=== PATIENT | male | born 1955 | race Caucasian/White ===

== ENCOUNTER → 2016-12-05 | Outpatient (CLI) | payer BC ==
--- NOTE | 2016-12-05 14:46 | REP ---
Renal ultrasound: The kidneys are normal size. In the right kidney measures 10.3 x 5.0 x 4.9 cm. The left kidney measures 10.6 x 5.9 x 4.8 cm. There is no hydronephrosis, calculus, cyst or mass in the right and the left kidneys. There is a focal hypoechoic zone at the margin of the lower pole of the right kidney measuring 3.0 x 0.7 x 1.4 cm, nonspecific, pararenal fluid versus fat stranding. Impression: Non specific hypoechoic focal zone at the margin of the right renal lower pole, pararenal fluid versus fat stranding. Otherwise, negative renal ultrasound. Bladder ultrasound: The bladder is incompletely distended and cannot be further evaluated. Signed by Conor Aguila MD 12/05/2016 02:38 P
== END ==
LOC: M RAD 12:44
PROVIDERS: ATTEND Internal Medicine Nephrology
DX: N18.3 Chronic kidney disease, stage 3 (moderate) (principal); I10 Essential (primary) hypertension

== ENCOUNTER 2016-12-23 21:51 | Emergency (ER) | payer BC ==
[2016-12-23 22:35] LABS: INR 0.98; MEAN CORPUSCULAR HEMOGLOBIN 30.6 pg (27.0-33.0); MEAN CORPUSCULAR HGB CONC 34.1 g/dl (32.0-36.5); MEAN CORPUSCULAR VOLUME 89.7 fl (80.0-96.0); RED CELL DISTRIBUTION WIDTH 12.6 % (11.5-14.5); WHITE BLOOD COUNT 6.8 K/mm3 (4.0-10.0)
[2016-12-23] MEDS ORDERED: ASPIRIN 81 MG CHEW TABLET As Ordered ONE (22:35)
[2016-12-23 22:44] LABS: ANION GAP 7 MEQ/L (8-16); BLOOD UREA NITROGEN 35 MG/DL (7-18); CARBON DIOXIDE LEVEL 29 MEQ/L (21-32); CHLORIDE LEVEL 100 MEQ/L (98-107); CREATININE FOR GFR 1.76 MG/DL (0.70-1.30); GLOMERULAR FILTRATION RATE 42.3 (>49); GLUCOSE, FASTING 174 MG/DL (80-110); POTASSIUM SERUM 4.2 MEQ/L (3.5-5.1); SODIUM LEVEL 136 MEQ/L (136-145)
[2016-12-23] MEDS ORDERED: HYDROmorphone HCL 1 MG/ML SYRINGE (J1170) As Ordered ONE (23:08)
[2016-12-23] MEDS ORDERED: METOCLOPRAMIDE INJ 10MG/2ML VIAL (J2765) As Ordered ONE (23:15)
[2016-12-24] MEDS ORDERED: GASTROGRAFIN SOLUTION 30ML (Q9963) As Ordered ONE (00:07)
[2016-12-24] MEDS ORDERED: GI COCKTAIL 50ML BTL(HYOSCYAMINE/MAALOX/LIDOCAINE VISCOUS)(1:3:1) As Ordered ONE (02:00)
--- NOTE | 2016-12-24 02:00 | REPUSA ---
CT of the abdomen and pelvis without contrast Clinical statement: Pain. Technique: Multiple axial CT images were obtained from the base of the lungs to the floor of the pelv is utilizing 5 mm axial slices after administration of oral contrast. Coronal and sagittal reconstruc tions were also obtained. No comparison is available. Findings: Chest: The visualized lung bases are clear. A moderate sized hiatal hernia is noted. Abdomen: The kidneys are normal in size bilaterally. There is no evidence of hydronephrosis or nephro lithiasis. The liver, spleen, pancreas, gallbladder and adrenal glands are unremarkable. The aorta de monstrates normal caliber and contour. There is no abdominal lymphadenopathy or ascites. Pelvis: The bowel is unremarkable, with no obstructive or inflammatory changes. The appendix is kathie l. The urinary bladder is within normal limits. There is no pelvic lymphadenopathy or ascites. The ot her pelvic structures appear unremarkable. Bones: There are no suspicious osseous abnormalities seen. Impression: No acute findings to explain the patient's pain. No obstructive or inflammatory bowel jaya nges. No evidence of hydronephrosis or nephrolithiasis.
--- NOTE | 2016-12-24 02:00 | REPUSA ---
CT of the chest without contrast Clinical statement: pain. Technique: Multiple axial CT images were obtained with 5 mm cuts through the chest without administra tion of contrast. No comparison is available. Findings: There is no thoracic lymphadenopathy. The visualized portions of the thyroid gland is unrem arkable. There are no pericardial or pleural effusions. There are patchy infiltrates in the lower loree gs bilaterally. Limited imaging of the upper abdomen does not demonstrate any acute abnormalities. Th ere is a moderate sized hiatal hernia. There are no suspicious osseous lesions. Impression: 1. Bilateral patchy lower lobe infiltrate/atelectasis. 2. Moderate sized hiatal hernia.
--- NOTE | 2016-12-24 02:26 | EDDOCDS ---
Physician Documentation [facility] Name: Jl Lerma Age: 61 yrs Sex: Male : 1955 Arrival Date: 12/23/2016 Time: 21:51 Bed 8 Private MD: Dana Harvey Ellen Disposition: 12/24/16 02:13 Discharged to Home/Self Care. Impression: Infectious gastroenteritis and colitis, unspecified - viral, Vomiting, Diarrhea, unspecified. - Condition is Stable. - Discharge Instructions: Clear Liquid Diet, [id number]. - Medication Reconciliation, Local Pharmacy Hours form. - Follow up: Dana Harvey; When: Call to arrange an appointment; Reason: Recheck today's complaints. - Problem is an ongoing problem. - Symptoms have improved. Historical: - Allergies: No known drug Allergies; - Home Meds: 1. Tylenol 325 mg Oral tab 2 tabs every 4 hours 2. zzquil (Last dose: 12/23/2016 20:00) 3. omeprazole 40 mg oral cpDR once daily 4. levemir 50 unit twice a day 5. lisinopril 10 mg Oral tab 6. hydrochlorothiazide 12.5 mg Oral cap 1 cap once daily 7. turmeric root extract 500 mg oral cap 8. Vitamin D Oral 50,000 unit weekly 9. trulicity Unknown - PMHx: GERD; Diabetes - IDDM: uncontrolled; Hypertension; Lyme Disease; skin CA; kidney Disease; - PSHx: none; - Social history: Smoking status: Patient states was never smoker of tobacco. No barriers to communication noted, The patient speaks fluent Iraqi, Speaks appropriately for age. - Family history: Not pertinent. - : The pt / caregiver states he / she is not on anticoagulants. Home medication list is obtained from the patient. - Exposure Risk Screening:: None identified. Vital Signs: 12/23 21:52 BP 132 / 76; Pulse 83; Resp 16; Temp 96.9(O); Pulse Ox 98% on R/A; Weight 79.38 kg / lr2 175 lbs (R); Height 5 ft. 5 in. (165.10 cm); Pain 10/10; 22:37 BP 141 / 85 (auto/); ko2 22:37 Pulse 78 MON; Pulse Ox 92% ; ko2 23:36 Pulse 88 MON; Pulse Ox 93% ; ko2 23:37 BP 175 / 97 (auto/); ko2 12/24 00:07 BP 167 / 92 (auto/); ko2 00:07 Pulse 88 MON; Pulse Ox 90% ; ko2 00:37 BP 176 / 92 (auto/); ko2 00:37 Pulse 82 MON; Pulse Ox 92% ; ko2 01:07 BP 140 / 71 (auto/); ko2 01:07 Pulse 92 MON; Pulse Ox 93% ; ko2 02:21 BP 152 / 92; Pulse 102; Resp 18; Temp 99.6(O); Pulse Ox 95% on R/A; Pain 0/10; kari 12/23 21:52 Body Mass Index 29.12 (79.38 kg, 165.10 cm) lr2 MDM: 12/23 22:08 ECG WITH READING ER PHYS+CARDIAG ordered. EDMS 22:26 Aspirin 324 mg PO once ordered. cs11 22:26 IV Saline Lock ordered. cs11 22:26 Chest, 1 View Ordered. EDMS 22:27 CBC Ordered. EDMS 22:27 MED Profile Ordered. EDMS 22:27 Pt & Aptt Ordered. EDMS 22:27 Cardiac Marker Panel Ordered. EDMS 23:00 Dilaudid - HYDROmorphone 0.5 mg IVP once ordered. cs11 23:00 MED Profile Reviewed. cs11 23:00 CBC Reviewed. cs11 23:00 Pt & Aptt Reviewed. cs11 23:00 Cardiac Marker Panel Reviewed. cs11 23:00 NS 0.9% 1000 ml IV at bolus once ordered. cs11 23:11 Metoclopramide 10 mg IV at 40 mg/hr once over 15 mins ordered. cs11 23:16 CT ABD & PELVIS: Oral Contrast Only Ordered. EDMS 23:16 CT Chest Without Contrast Ordered. EDMS 23:43 Financial registration complete. hs2 12/24 00:16 Diatrizoate Meglumine & Sodium Liquid 10 ml PO once; mix in 290cc of water ordered. ko2 00:16 Diatrizoate Meglumine & Sodium Liquid 10 ml PO once; mix in 290cc of water ordered. ko2 00:33 [facility] Payment Agreement was scanned into mobile mum and attached to record. hs2 01:59 GI Cocktail - (Alum-Mag Hydroxide-Simeth 30 ml, Lidocaine 10 ml, Hyoscyamine 10 ml) PO cs11 once; Pre-mixed 50mL unit dose ordered. Administered Medications: 12/23 22:38 Drug: Aspirin 324 mg [aspirin 81 mg chewable tablet (4 tabs)] Route: PO; ko2 23:14 Drug: Dilaudid - HYDROmorphone 0.5 mg [hydromorphone 1 mg/mL injection syringe (0.5 ko2 mL)] Route: IVP; Site: left antecubital; 23:14 Drug: NS 0.9% 1000 ml [sodium chloride 0.9 % intravenous solution] Route: IV; Rate: ko2 bolus; Site: left antecubital; 23:19 Drug: Metoclopramide 10 mg [metoclopramide 5 mg/mL injection solution] Route: IV; Rate: ko2 40 mg/hr; Infused Over: 15 mins; Site: left antecubital; 12/24 00:15 Drug: Diatrizoate Meglumine & Sodium 10 ml [diatrizoate meglumine and diat.sodium 66 ko2 %-10 % oral solution (10 mL)] Route: PO; 00:45 Drug: Diatrizoate Meglumine & Sodium 10 ml [diatrizoate meglumine and diat.sodium 66 ko2 %-10 % oral solution (10 mL)] Route: PO; 02:11 Drug: GI Cocktail - (Alum-Mag Hydroxide-Simeth Suspension 225 mg-200 mg-25 mg/5 mL 30 ko2 ml, Lidocaine Liquid 2 % 10 ml, Hyoscyamine Liquid 10 ml) Route: PO; Signatures: Dispatcher [employer] Rommel Hernandez DO DO cs11 Daisha Vargas RN RN ko2 Marian Gabriel, Reg Reg hs2 The chart was reviewed and I authenticate all verbal orders and agree with the evaluation and treatment provided.Attachments: 00:33 [facility] Payment Agreement hs2 [facility]
--- NOTE | 2016-12-24 02:26 | EDDOCDS ---
Nurse's Notes [facility] Name: Jl Lerma Age: 61 yrs Sex: Male : 1955 Arrival Date: 12/23/2016 Time: 21:51 Bed 8 Private MD: Dana Harvey Ellen Diagnosis: Infectious gastroenteritis and colitis, unspecified-viral;Vomiting;Diarrhea, unspecified Presentation: 12/23 21:56 Presenting complaint: Patient states: Chest pain started around noon in epigastric ko2 area. Aspirin was not taken prior to arrival. Suicide/Homicide risk assessment- the patient denies having any suicidal and/or homicidal ideations and does not present with any other emotional, behavioral or mental health complaints. Status: Patient is not a member service specialist or dependent. Transition of care: patient was not received from another setting of care. 21:56 Acuity: FIDENCIO Level 3 ko2 21:56 Method Of Arrival: Walkin/Carried/Asstd ko2 22:07 Adult Sepsis Screening: The patient does not have new or worsening altered mentation. ko2 Patient's respiratory rate is less than 22. Systolic blood pressure is greater than 100. Patient has a qSOFA score of 0- Negative Sepsis Screen. Triage Assessment: 22:04 General: Appears in no apparent distress, pt laying on stretcher. Pain: Location: ko2 xyphoid area Pain currently is 10 out of 10 on a pain scale. HIV screening NA for this visit Offered previously. Neurological: Level of Consciousness is awake, alert. Cardiovascular: Chest pain is described as Pain is 10 out of 10 on a pain scale. Respiratory: Airway is patent Respiratory effort is even, unlabored, Respiratory pattern is regular, symmetrical. Derm: Skin is normal. 22:08 Cardiovascular: Chest pain radiates Does not radiate. episodes are continuous began 9 ko2 hours ago. Historical: - Allergies: No known drug Allergies; - Home Meds: 1. Tylenol 325 mg Oral tab 2 tabs every 4 hours 2. zzquil (Last dose: 12/23/2016 20:00) 3. omeprazole 40 mg oral cpDR once daily 4. levemir 50 unit twice a day 5. lisinopril 10 mg Oral tab 6. hydrochlorothiazide 12.5 mg Oral cap 1 cap once daily 7. turmeric root extract 500 mg oral cap 8. Vitamin D Oral 50,000 unit weekly 9. trulicity Unknown - PMHx: GERD; Diabetes - IDDM: uncontrolled; Hypertension; Lyme Disease; skin CA; kidney Disease; - PSHx: none; - Social history: Smoking status: Patient states was never smoker of tobacco. No barriers to communication noted, The patient speaks fluent Georgian, Speaks appropriately for age. - Family history: Not pertinent. - : The pt / caregiver states he / she is not on anticoagulants. Home medication list is obtained from the patient. - Exposure Risk Screening:: None identified. Screenin:07 Screening information is obtained from the patient. Fall risk: No risks identified. ko2 Assistance ADL's: requires no assistance with activities of daily living. Abuse/DV Screen: The patient / caregiver reports he/she is: not in a situation that causes fear, pain or injury. Nutritional screening: No deficits noted. Advance Directives: Currently, there is no health care proxy. There is no active DNR order. There is no living will. There is no Power of Phlebotomy Specialist. home support is adequate. Assessment: 22:06 General: See triage assessment. ko2 23:10 General: Appears in no apparent distress, Behavior is appropriate for age, cooperative. ko2 Pain: Location: epigastric area Pain currently is 9 out of 10 on a pain scale. Neurological: Level of Consciousness is awake, alert. Cardiovascular: Rhythm is sinus rhythm No ectopy. Respiratory: Airway is patent Respiratory effort is even, unlabored. Derm: Skin is normal. 12/24 00:51 General: Appears in no apparent distress, Behavior is appropriate for age, cooperative. ko2 Neurological: Level of Consciousness is awake, alert. Respiratory: Airway is patent Respiratory effort is even, unlabored. Derm: Skin is normal. 02:12 General: Appears in no apparent distress, Behavior is appropriate for age, cooperative. ko2 Pain: Location: epigastric area. Neurological: Level of Consciousness is awake, alert. Respiratory: Airway is patent Respiratory effort is even, unlabored. Derm: Skin is normal. Vital Signs: 12/23 21:52 BP 132 / 76; Pulse 83; Resp 16; Temp 96.9(O); Pulse Ox 98% on R/A; Weight 79.38 kg (R); lr2 Height 5 ft. 5 in. (165.10 cm); Pain 10/10; 22:37 BP 141 / 85 (auto/); ko2 22:37 Pulse 78 MON; Pulse Ox 92% ; ko2 23:36 Pulse 88 MON; Pulse Ox 93% ; ko2 23:37 BP 175 / 97 (auto/); ko2 12/24 00:07 BP 167 / 92 (auto/); ko2 00:07 Pulse 88 MON; Pulse Ox 90% ; ko2 00:37 BP 176 / 92 (auto/); ko2 00:37 Pulse 82 MON; Pulse Ox 92% ; ko2 01:07 BP 140 / 71 (auto/); ko2 01:07 Pulse 92 MON; Pulse Ox 93% ; ko2 02:21 BP 152 / 92; Pulse 102; Resp 18; Temp 99.6(O); Pulse Ox 95% on R/A; Pain 0/10; kari 12/23 21:52 Body Mass Index 29.12 (79.38 kg, 165.10 cm) lr2 Vitals: 12/23 21:52 Log In Time: December 23, 2016 at 21:51. lr2 21:52 RN notified that patient meets Red Flag criteria. lr2 ED Course: 21:52 Patient visited by Harleen Anderson. lr2 21:52 Patient moved to Waiting lr2 21:53 Daisha Vargas,RN is Primary Nurse. cz 21:53 Patient moved to 8 cz 21:54 Dana Harvey is Private Physician. lr2 21:54 Patient moved to Waiting lr2 21:54 Patient moved to 8 lr2 21:57 Triage Initiated ko2 22:07 case monitor on. Pulse ox on. NIBP on. ko2 22:07 Inserted saline lock: 20 gauge in left antecubital area and blood collected. The ko2 patient tolerated the procedure well. 22:08 Patient visited by Daisha Vargas RN. ko2 22:11 Patient visited by Xenia Trejo PCA. kari 22:11 EKG done. (by ED staff). Reviewed by Rommel Rico DO. kari 22:25 Rommel Rico DO is Attending Physician. cs11 22:25 Patient visited by Rommel Rico DO. cs11 23:14 Patient visited by Daisha Vargas RN. ko2 23:19 The patient / caregiver is instructed regarding the plan of care and ED course. ko2 23:55 Patient visited by Daisha Vargas RN. ko2 12/24 00:33 [facility] Payment Agreement was scanned into [employer] and attached to record. hs2 00:37 Patient name changed from Jl\Rosalba\Tylor\S\Florentin\S\ to Jl\S\Cheng\S\Florentin. EDMS 00:51 Patient visited by Daisha Vargas RN. ko2 01:21 Patient visited by Daisha Vargas RN. ko2 02:12 Dana Harvey is Referral Physician. cs11 02:21 Patient visited by Xenia Trejo PCA. kari 02:23 CT Chest Without Contrast Returned. EDMS 02:23 CT ABD & PELVIS: Oral Contrast Only Returned. EDMS 02:23 Discontinued lock intact, bleeding controlled, pressure dressing applied, No ko2 redness/swelling at site. No procedures done that require assistance. Administered Medications: 12/23 22:38 Drug: Aspirin 324 mg [aspirin 81 mg chewable tablet (4 tabs)] Route: PO; ko2 23:14 Drug: Dilaudid - HYDROmorphone 0.5 mg [hydromorphone 1 mg/mL injection syringe (0.5 ko2 mL)] Route: IVP; Site: left antecubital; 23:14 Drug: NS 0.9% 1000 ml [sodium chloride 0.9 % intravenous solution] Route: IV; Rate: ko2 bolus; Site: left antecubital; 23:19 Drug: Metoclopramide 10 mg [metoclopramide 5 mg/mL injection solution] Route: IV; Rate: ko2 40 mg/hr; Infused Over: 15 mins; Site: left antecubital; 12/24 00:15 Drug: Diatrizoate Meglumine & Sodium 10 ml [diatrizoate meglumine and diat.sodium 66 ko2 %-10 % oral solution (10 mL)] Route: PO; 00:45 Drug: Diatrizoate Meglumine & Sodium 10 ml [diatrizoate meglumine and diat.sodium 66 ko2 %-10 % oral solution (10 mL)] Route: PO; 02:11 Drug: GI Cocktail - (Alum-Mag Hydroxide-Simeth Suspension 225 mg-200 mg-25 mg/5 mL 30 ko2 ml, Lidocaine Liquid 2 % 10 ml, Hyoscyamine Liquid 10 ml) Route: PO; Order Results: Lab Order: CBC; [facility] 12/23/16 22:03 Test: WHITE BLOOD COUNT; Value: 6.8; Range: 4.0-10.0; Units: K/mm3; Status: F Test: RED BLOOD COUNT; Value: 5.21; Range: 4.30-6.10; Units: M/mm3; Status: F Test: HEMOGLOBIN; Value: 16.0; Range: 14.0-18.0; Units: g/dl; Status: F Test: HEMATOCRIT; Value: 46.8; Range: 42.0-52.0; Units: %; Status: F Test: MEAN CORPUSCULAR VOLUME; Value: 89.7; Range: 80.0-96.0; Units: fl; Status: F Test: MEAN CORPUSCULAR HEMOGLOBIN; Value: 30.6; Range: 27.0-33.0; Units: pg; Status: F Test: MEAN CORPUSCULAR HGB CONC; Value: 34.1; Range: 32.0-36.5; Units: g/dl; Status: F Test: RED CELL DISTRIBUTION WIDTH; Value: 12.6; Range: 11.5-14.5; Units: %; Status: F Test: PLATELET COUNT, AUTOMATED; Value: 250; Range: 150-450; Units: k/mm3; Status: F Lab Order: MED Profile; [facility] 12/23/16 22:03 Test: GLUCOSE, FASTING; Value: 174; Range: 80-110; Abnormal: Above high normal; Units: MG/DL; Status: F Test: BLOOD UREA NITROGEN; Value: 35; Range: 7-18; Abnormal: Above high normal; Units: MG/DL; Status: F Test: CREATININE FOR GFR; Value: 1.76; Range: 0.70-1.30; Abnormal: Above high normal; Units: MG/DL; Status: F Test: GLOMERULAR FILTRATION RATE; Value: 42.3; Range: >49; Abnormal: Below low normal; Status: F Test: SODIUM LEVEL; Value: 136; Range: 136-145; Units: MEQ/L; Status: F Test: POTASSIUM SERUM; Value: 4.2; Range: 3.5-5.1; Units: MEQ/L; Status: F Test: CHLORIDE LEVEL; Value: 100; Range: 98-107; Units: MEQ/L; Status: F Test: CARBON DIOXIDE LEVEL; Value: 29; Range: 21-32; Units: MEQ/L; Status: F Test: ANION GAP; Value: 7; Range: 8-16; Abnormal: Below low normal; Units: MEQ/L; Status: F Test: CALCIUM LEVEL; Value: 8.0; Range: 8.8-10.2; Abnormal: Below low normal; Units: MG/DL; Status: F Test Note: ; Units are mL/min/1.73 m2 Chronic Kidney Disease Staging per NKF: Stage I & II GFR >=60 Normal to Mildly Decreased Stage III GFR 30-59 Moderately Decreased Stage IV GFR 15-29 Severely Decreased Stage V GFR <15 Very Little GFR Left ESRD GFR <15 on TILE LAYER SUPERVISOR Lab Order: Pt & Aptt; SPEC'M 12/23/16 22:03 Test: PROTHROMBIN TIME; Value: 13.1; Range: 12.3-14.5; Units: SECONDS; Status: F Test: INR; Value: 0.98; Status: F Test: PARTIAL THROMBOPLASTIN TIME; Value: 30.2; Range: 26.6-37.1; Units: SECONDS; Status: F Test Note: ; THERAPUTIC HUMAN INR VALUES INDICATIONS NORMAL RANGES PROPHYLAXIS/TREATMENT OF: VENOUS THROMBOSIS 2.0-3.0 PULMONARY EMBOLISM 2.0-3.0 PREVENTION OF SYSTEMIC EMBOLISM FROM: TISSUE HEART VALVES 2.0-3.0 ACUTE MYOCARDIAL INFARCTION 2.0-3.0 VALVULAR HEART DISEASE 2.0-3.0 ATRIAL FIBRILLATION 2.0-3.0 MECHANICAL VALVES(HIGH RISK) 2.5-3.5 RECURRENT MYOCARDIAL INFARCTION 2.5-3.5 Lab Order: Cardiac Marker Panel; SPEC'M 12/23/16 22:03 Test: CPK CREATINE PHOSPHOKINASE; Value: 77; Range: 39-308; Units: U/L; Status: F Test: CK-MB VALUE MASS; Value: 1.0; Range: 0.0-3.6; Units: NG/ML; Status: F Test: MB/CK RELATIVE INDEX; Value: 1.29; Range: < OR =4; Status: F Test: TROPONIN I; Value: < 0.02; Range: < 0.10; Units: NG/ML; Status: F Test Note: ; DIAGNOSIS CRITERIA MMB ng/ml Relative Index (RI) NON-AMI < or = 5 N/A [place]ISON [place]ONE > 5 < or = 4 AMI > 5 > 4 Radiology Order: CT ABD & PELVIS: Oral Contrast Only Test: CT ABD & PELVIS: Oral Contrast Only REASON FOR EXAMINATION: Abdomen Pain; ; CT of the abdomen and pelvis without contrast; Clinical statement: Pain.; Technique: Multiple axial CT images were obtained from the base of the lungs to the floor of the pelv; is utilizing 5 mm axial slices after administration of oral contrast. Coronal and sagittal reconstruc; tions were also obtained.; No comparison is available.; Findings:; Chest: The visualized lung bases are clear. A moderate sized hiatal hernia is noted.; Abdomen: The kidneys are normal in size bilaterally. There is no evidence of hydronephrosis or nephro; lithiasis. The liver, spleen, pancreas, gallbladder and adrenal glands are unremarkable. The aorta de; monstrates normal caliber and contour. There is no abdominal lymphadenopathy or ascites.; Pelvis: The bowel is unremarkable, with no obstructive or inflammatory changes. The appendix is kathie; l. The urinary bladder is within normal limits. There is no pelvic lymphadenopathy or ascites. The ot; her pelvic structures appear unremarkable.; Bones: There are no suspicious osseous abnormalities seen.; Impression: No acute findings to explain the patient's pain. No obstructive or inflammatory bowel jaya; nges. No evidence of hydronephrosis or nephrolithiasis.; ; Radiology Order: CT Chest Without Contrast Test: CT Chest Without Contrast REASON FOR EXAMINATION: Chest Pain; ; CT of the chest without contrast; Clinical statement: pain.; Technique: Multiple axial CT images were obtained with 5 mm cuts through the chest without administra; tion of contrast.; No comparison is available.; Findings: There is no thoracic lymphadenopathy. The visualized portions of the thyroid gland is unrem; arkable. There are no pericardial or pleural effusions. There are patchy infiltrates in the lower loree; gs bilaterally. Limited imaging of the upper abdomen does not demonstrate any acute abnormalities. Th; ere is a moderate sized hiatal hernia. There are no suspicious osseous lesions.; Impression:; 1. Bilateral patchy lower lobe infiltrate/atelectasis.; 2. Moderate sized hiatal hernia.; ; Outcome: 02:13 Discharge ordered by Provider. cs11 02:24 Discharge Assessment: Patient awake, alert and oriented x 3. No cognitive and/or ko2 functional deficits noted. Patient verbalized understanding of disposition instructions. patient administered narcotics - yes. Pt provided with safe discharge. The following High Risk Discharge criteria are identified: None. Discharged to home ambulatory, with significant other. Condition: stable. Discharge instructions given to patient, Instructed on discharge instructions, follow up and referral plans. Demonstrated understanding of instructions, Pt was receptive of discharge instructions/ teaching. CT Study completed. Property sent home with patient. 02:24 Patient left the ED. ko2 Signatures: Dispatcher [employer] EDMS Truong Dos Santos, RN RN cz Xenia Trejo, TRAY WORKER TRAY WORKER Rommel Cardoso, DO cs11 Daisah Vargas RN RN ko2 Marian Gabriel, Reg Reg hs2 Harleen Anderson2 MTDD
--- NOTE | 2016-12-24 10:02 | REP ---
SINGLE VIEW CHEST: Single AP portable view of the chest is performed. There are no comparison studies. There is poor ventilation. Cardiomediastinal silhouette is prominent. This is likely due to poor ventilation and AP portable technique. Mild bibasilar atelectasis/infiltrate is seen, right greater than left. There is mild elevation of the right hemidiaphragm. IMPRESSION: Prominent cardiomediastinal silhouette likely due to technical factors. Mild bibasilar atelectasis/infiltrate, right greater than left. Signed by Conor Liu MD 12/24/2016 04:52 P
--- NOTE | 2016-12-25 10:09 | ECGEPIP ---
Stationary ECG Study [facility] - ED Test Date: 2016-12-23 Pat Name: SOFIA BARGER Department: Room: - Gender: M Coagulating Operator: MolinaB: 1955 Requested By: LILIAN LEE Order Number: [id number] Reading MD: Sundeep Sotelo Measurements Intervals [place] Rate: 77 P: 5 TN: 164 QRS: -12 QRSD: 89 T: 2 QT: 367 QTc: 417 Interpretive Statements SINUS RHYTHM [employer]. RBBB MODERATE VOLTAGE CRITERIA FOR LVH, CONSIDER NORMAL VARIANT NO PRIORS Electronically Signed On 12-25-2016 10:09:05 EST by Sundeep Sotelo
--- NOTE | 2016-12-26 03:26 | EDDOCDS ---
Nurse's Notes [facility] Name: Jl Lerma Age: 61 yrs Sex: Male : 1955 Arrival Date: 12/23/2016 Time: 21:51 Bed 8 Private MD: Dana Harvey Ellen Diagnosis: Infectious gastroenteritis and colitis, unspecified-viral;Vomiting;Diarrhea, unspecified Presentation: 12/23 21:56 Presenting complaint: Patient states: Chest pain started around noon in epigastric ko2 area. Aspirin was not taken prior to arrival. Suicide/Homicide risk assessment- the patient denies having any suicidal and/or homicidal ideations and does not present with any other emotional, behavioral or mental health complaints. Status: Patient is not a director construction services or dependent. Transition of care: patient was not received from another setting of care. 21:56 Acuity: FIDENCIO Level 3 ko2 21:56 Method Of Arrival: Walkin/Carried/Asstd ko2 22:07 Adult Sepsis Screening: The patient does not have new or worsening altered mentation. ko2 Patient's respiratory rate is less than 22. Systolic blood pressure is greater than 100. Patient has a qSOFA score of 0- Negative Sepsis Screen. Triage Assessment: 22:04 General: Appears in no apparent distress, pt laying on stretcher. Pain: Location: ko2 xyphoid area Pain currently is 10 out of 10 on a pain scale. HIV screening NA for this visit Offered previously. Neurological: Level of Consciousness is awake, alert. Cardiovascular: Chest pain is described as Pain is 10 out of 10 on a pain scale. Respiratory: Airway is patent Respiratory effort is even, unlabored, Respiratory pattern is regular, symmetrical. Derm: Skin is normal. 22:08 Cardiovascular: Chest pain radiates Does not radiate. episodes are continuous began 9 ko2 hours ago. Historical: - Allergies: No known drug Allergies; - Home Meds: 1. Tylenol 325 mg Oral tab 2 tabs every 4 hours 2. zzquil (Last dose: 12/23/2016 20:00) 3. omeprazole 40 mg oral cpDR once daily 4. levemir 50 unit twice a day 5. lisinopril 10 mg Oral tab 6. hydrochlorothiazide 12.5 mg Oral cap 1 cap once daily 7. turmeric root extract 500 mg oral cap 8. Vitamin D Oral 50,000 unit weekly 9. trulicity Unknown - PMHx: GERD; Diabetes - IDDM: uncontrolled; Hypertension; Lyme Disease; skin CA; kidney Disease; - PSHx: none; - Social history: Smoking status: Patient states was never smoker of tobacco. No barriers to communication noted, The patient speaks fluent Pashto, Speaks appropriately for age. - Family history: Not pertinent. - : The pt / caregiver states he / she is not on anticoagulants. Home medication list is obtained from the patient. - Exposure Risk Screening:: None identified. Screenin:07 Screening information is obtained from the patient. Fall risk: No risks identified. ko2 Assistance ADL's: requires no assistance with activities of daily living. Abuse/DV Screen: The patient / caregiver reports he/she is: not in a situation that causes fear, pain or injury. Nutritional screening: No deficits noted. Advance Directives: Currently, there is no health care proxy. There is no active DNR order. There is no living will. There is no Power of Transfer Professor. home support is adequate. Assessment: 22:06 General: See triage assessment. ko2 23:10 General: Appears in no apparent distress, Behavior is appropriate for age, cooperative. ko2 Pain: Location: epigastric area Pain currently is 9 out of 10 on a pain scale. Neurological: Level of Consciousness is awake, alert. Cardiovascular: Rhythm is sinus rhythm No ectopy. Respiratory: Airway is patent Respiratory effort is even, unlabored. Derm: Skin is normal. 12/24 00:51 General: Appears in no apparent distress, Behavior is appropriate for age, cooperative. ko2 Neurological: Level of Consciousness is awake, alert. Respiratory: Airway is patent Respiratory effort is even, unlabored. Derm: Skin is normal. 02:12 General: Appears in no apparent distress, Behavior is appropriate for age, cooperative. ko2 Pain: Location: epigastric area. Neurological: Level of Consciousness is awake, alert. Respiratory: Airway is patent Respiratory effort is even, unlabored. Derm: Skin is normal. Vital Signs: 12/23 21:52 BP 132 / 76; Pulse 83; Resp 16; Temp 96.9(O); Pulse Ox 98% on R/A; Weight 79.38 kg (R); lr2 Height 5 ft. 5 in. (165.10 cm); Pain 10/10; 22:37 BP 141 / 85 (auto/); ko2 22:37 Pulse 78 MON; Pulse Ox 92% ; ko2 23:36 Pulse 88 MON; Pulse Ox 93% ; ko2 23:37 BP 175 / 97 (auto/); ko2 12/24 00:07 BP 167 / 92 (auto/); ko2 00:07 Pulse 88 MON; Pulse Ox 90% ; ko2 00:37 BP 176 / 92 (auto/); ko2 00:37 Pulse 82 MON; Pulse Ox 92% ; ko2 01:07 BP 140 / 71 (auto/); ko2 01:07 Pulse 92 MON; Pulse Ox 93% ; ko2 02:21 BP 152 / 92; Pulse 102; Resp 18; Temp 99.6(O); Pulse Ox 95% on R/A; Pain 0/10; kari 12/23 21:52 Body Mass Index 29.12 (79.38 kg, 165.10 cm) lr2 Vitals: 12/23 21:52 Log In Time: December 23, 2016 at 21:51. lr2 21:52 RN notified that patient meets Red Flag criteria. lr2 ED Course: 21:52 Patient visited by Harleen Anderson. lr2 21:52 Patient moved to Waiting lr2 21:53 Daisha Vargas,RN is Primary Nurse. cz 21:53 Patient moved to 8 cz 21:54 Dana Harvey is Private Physician. lr2 21:54 Patient moved to Waiting lr2 21:54 Patient moved to 8 lr2 21:57 Triage Initiated ko2 22:07 threat monitoring analyst on. Pulse ox on. NIBP on. ko2 22:07 Inserted saline lock: 20 gauge in left antecubital area and blood collected. The ko2 patient tolerated the procedure well. 22:08 Patient visited by Daisha Vargas RN. ko2 22:11 Patient visited by Xenia Trejo PCA. kari 22:11 EKG done. (by ED staff). Reviewed by Lilian Lee DO. kari 22:25 Lilian Lee DO is Attending Physician. cs11 22:25 Patient visited by Lilian Lee DO. cs11 23:14 Patient visited by Daisha Vargas RN. ko2 23:19 The patient / caregiver is instructed regarding the plan of care and ED course. ko2 23:55 Patient visited by Daisha Vargas RN. ko2 12/24 00:33 [facility] Payment Agreement was scanned into [employer] and attached to record. hs2 00:37 Patient name changed from Jl\S\Tylor\S\Florentin\S\ to Jl\S\Cheng\S\Florentin. EDMS 00:51 Patient visited by Daisha Vargas RN. ko2 01:21 Patient visited by Daisha Vargas RN. ko2 02:12 Dana Harvey is Referral Physician. cs11 02:21 Patient visited by Xenia Trejo, FARIHA. kari 02:23 CT Chest Without Contrast Returned. EDMS 02:23 CT ABD & PELVIS: Oral Contrast Only Returned. EDMS 02:23 Discontinued lock intact, bleeding controlled, pressure dressing applied, No ko2 redness/swelling at site. No procedures done that require assistance. 10:42 Chest, 1 View Returned. EDMS 03 10:45 EKG-ADULT Returned. EDMS Administered Medications: 12/23 22:38 Drug: Aspirin 324 mg [aspirin 81 mg chewable tablet (4 tabs)] Route: PO; ko2 23:14 Drug: Dilaudid - HYDROmorphone 0.5 mg [hydromorphone 1 mg/mL injection syringe (0.5 ko2 mL)] Route: IVP; Site: left antecubital; 23:14 Drug: NS 0.9% 1000 ml [sodium chloride 0.9 % intravenous solution] Route: IV; Rate: ko2 bolus; Site: left antecubital; 23:19 Drug: Metoclopramide 10 mg [metoclopramide 5 mg/mL injection solution] Route: IV; Rate: ko2 40 mg/hr; Infused Over: 15 mins; Site: left antecubital; 12/24 00:15 Drug: Diatrizoate Meglumine & Sodium 10 ml [diatrizoate meglumine and diat.sodium 66 ko2 %-10 % oral solution (10 mL)] Route: PO; 00:45 Drug: Diatrizoate Meglumine & Sodium 10 ml [diatrizoate meglumine and diat.sodium 66 ko2 %-10 % oral solution (10 mL)] Route: PO; 02:11 Drug: GI Cocktail - (Alum-Mag Hydroxide-Simeth Suspension 225 mg-200 mg-25 mg/5 mL 30 ko2 ml, Lidocaine Liquid 2 % 10 ml, Hyoscyamine Liquid 10 ml) Route: PO; Order Results: Lab Order: CBC; [facility]' 12/23/16 22:03 Test: WHITE BLOOD COUNT; Value: 6.8; Range: 4.0-10.0; Units: K/mm3; Status: F Test: RED BLOOD COUNT; Value: 5.21; Range: 4.30-6.10; Units: M/mm3; Status: F Test: HEMOGLOBIN; Value: 16.0; Range: 14.0-18.0; Units: g/dl; Status: F Test: HEMATOCRIT; Value: 46.8; Range: 42.0-52.0; Units: %; Status: F Test: MEAN CORPUSCULAR VOLUME; Value: 89.7; Range: 80.0-96.0; Units: fl; Status: F Test: MEAN CORPUSCULAR HEMOGLOBIN; Value: 30.6; Range: 27.0-33.0; Units: pg; Status: F Test: MEAN CORPUSCULAR HGB CONC; Value: 34.1; Range: 32.0-36.5; Units: g/dl; Status: F Test: RED CELL DISTRIBUTION WIDTH; Value: 12.6; Range: 11.5-14.5; Units: %; Status: F Test: PLATELET COUNT, AUTOMATED; Value: 250; Range: 150-450; Units: k/mm3; Status: F Lab Order: MED Profile; [facility]' 12/23/16 22:03 Test: GLUCOSE, FASTING; Value: 174; Range: 80-110; Abnormal: Above high normal; Units: MG/DL; Status: F Test: BLOOD UREA NITROGEN; Value: 35; Range: 7-18; Abnormal: Above high normal; Units: MG/DL; Status: F Test: CREATININE FOR GFR; Value: 1.76; Range: 0.70-1.30; Abnormal: Above high normal; Units: MG/DL; Status: F Test: GLOMERULAR FILTRATION RATE; Value: 42.3; Range: >49; Abnormal: Below low normal; Status: F Test: SODIUM LEVEL; Value: 136; Range: 136-145; Units: MEQ/L; Status: F Test: POTASSIUM SERUM; Value: 4.2; Range: 3.5-5.1; Units: MEQ/L; Status: F Test: CHLORIDE LEVEL; Value: 100; Range: 98-107; Units: MEQ/L; Status: F Test: CARBON DIOXIDE LEVEL; Value: 29; Range: 21-32; Units: MEQ/L; Status: F Test: ANION GAP; Value: 7; Range: 8-16; Abnormal: Below low normal; Units: MEQ/L; Status: F Test: CALCIUM LEVEL; Value: 8.0; Range: 8.8-10.2; Abnormal: Below low normal; Units: MG/DL; Status: F Test Note: ; Units are mL/min/1.73 m2 Chronic Kidney Disease Staging per NKF: Stage I & II GFR >=60 Normal to Mildly Decreased Stage III GFR 30-59 Moderately Decreased Stage IV GFR 15-29 Severely Decreased Stage V GFR <15 Very Little GFR Left ESRD GFR <15 on [employer] Lab Order: Pt & Aptt; SPEC12/23/16 22:03 Test: PROTHROMBIN TIME; Value: 13.1; Range: 12.3-14.5; Units: SECONDS; Status: F Test: INR; Value: 0.98; Status: F Test: PARTIAL THROMBOPLASTIN TIME; Value: 30.2; Range: 26.6-37.1; Units: SECONDS; Status: F Test Note: ; THERAPUTIC HUMAN INR VALUES INDICATIONS NORMAL RANGES PROPHYLAXIS/TREATMENT OF: VENOUS THROMBOSIS 2.0-3.0 PULMONARY EMBOLISM 2.0-3.0 PREVENTION OF SYSTEMIC EMBOLISM FROM: TISSUE HEART VALVES 2.0-3.0 ACUTE MYOCARDIAL INFARCTION 2.0-3.0 VALVULAR HEART DISEASE 2.0-3.0 ATRIAL FIBRILLATION 2.0-3.0 MECHANICAL VALVES(HIGH RISK) 2.5-3.5 RECURRENT MYOCARDIAL INFARCTION 2.5-3.5 Lab Order: Cardiac Marker Panel; SPEC12/23/16 22:03 Test: CPK CREATINE PHOSPHOKINASE; Value: 77; Range: 39-308; Units: U/L; Status: F Test: CK-MB VALUE MASS; Value: 1.0; Range: 0.0-3.6; Units: NG/ML; Status: F Test: MB/CK RELATIVE INDEX; Value: 1.29; Range: < OR =4; Status: F Test: TROPONIN I; Value: < 0.02; Range: < 0.10; Units: NG/ML; Status: F Test Note: ; DIAGNOSIS CRITERIA MMB ng/ml Relative Index (RI) NON-AMI < or = 5 N/A LIU ZONE > 5 < or = 4 AMI > 5 > 4 Radiology Order: EKG-ADULT Test: EKG-ADULT REASON FOR EXAMINATION: Chest Pain; Stationary ECG Study; [facility] - ED; ; Test Date: 2016-12-23; Pat Name: JL LERMA Department:; Room: -; Gender: M 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 RBBB; MODERATE VOLTAGE CRITERIA FOR LVH, CONSIDER NORMAL VARIANT; NO PRIORS; Electronically Signed On 12-25-2016 10:09:05 EST by Sundeep Sotelo; Radiology Order: Chest, 1 View Test: Chest, 1 View REASON FOR EXAMINATION: Chest Pain; SINGLE VIEW CHEST:; ; Single AP portable view of the chest is performed.; ; There are no comparison studies.; ; There is poor ventilation. Cardiomediastinal silhouette is prominent. This is; likely due to poor ventilation and AP portable technique. Mild bibasilar; atelectasis/infiltrate is seen, right greater than left. There is mild elevation; of the right hemidiaphragm.; ; IMPRESSION:; ; Prominent cardiomediastinal silhouette likely due to technical factors. Mild; bibasilar atelectasis/infiltrate, right greater than left.; ; ; Signed by; Conor Liu MD 12/24/2016 04:52 P; Radiology Order: CT ABD & PELVIS: Oral Contrast Only Test: CT ABD & PELVIS: Oral Contrast Only REASON FOR EXAMINATION: Abdomen Pain; ; CT of the abdomen and pelvis without contrast; Clinical statement: Pain.; Technique: Multiple axial CT images were obtained from the base of the lungs to the floor of the pelv; is utilizing 5 mm axial slices after administration of oral contrast. Coronal and sagittal reconstruc; tions were also obtained.; No comparison is available.; Findings:; Chest: The visualized lung bases are clear. A moderate sized hiatal hernia is noted.; Abdomen: The kidneys are normal in size bilaterally. There is no evidence of hydronephrosis or nephro; lithiasis. The liver, spleen, pancreas, gallbladder and adrenal glands are unremarkable. The aorta de; monstrates normal caliber and contour. There is no abdominal lymphadenopathy or ascites.; Pelvis: The bowel is unremarkable, with no obstructive or inflammatory changes. The appendix is kathie; l. The urinary bladder is within normal limits. There is no pelvic lymphadenopathy or ascites. The ot; her pelvic structures appear unremarkable.; Bones: There are no suspicious osseous abnormalities seen.; Impression: No acute findings to explain the patient's pain. No obstructive or inflammatory bowel jaya; nges. No evidence of hydronephrosis or nephrolithiasis.; ; Radiology Order: CT Chest Without Contrast Test: CT Chest Without Contrast REASON FOR EXAMINATION: Chest Pain; ; CT of the chest without contrast; Clinical statement: pain.; Technique: Multiple axial CT images were obtained with 5 mm cuts through the chest without administra; tion of contrast.; No comparison is available.; Findings: There is no thoracic lymphadenopathy. The visualized portions of the thyroid gland is unrem; arkable. There are no pericardial or pleural effusions. There are patchy infiltrates in the lower loree; gs bilaterally. Limited imaging of the upper abdomen does not demonstrate any acute abnormalities. Th; ere is a moderate sized hiatal hernia. There are no suspicious osseous lesions.; Impression:; 1. Bilateral patchy lower lobe infiltrate/atelectasis.; 2. Moderate sized hiatal hernia.; ; Outcome: 02:13 Discharge ordered by Provider. cs11 02:24 Discharge Assessment: Patient awake, alert and oriented x 3. No cognitive and/or ko2 functional deficits noted. Patient verbalized understanding of disposition instructions. patient administered narcotics - yes. Pt provided with safe discharge. The following High Risk Discharge criteria are identified: None. Discharged to home ambulatory, with significant other. Condition: stable. Discharge instructions given to patient, Instructed on discharge instructions, follow up and referral plans. Demonstrated understanding of instructions, Pt was receptive of discharge instructions/ teaching. CT Study completed. Property sent home with patient. 02:24 Patient left the ED. ko2 Signatures: Dispatcher [employer] EDTruong Rendon, PARESH RN cz Xenia Trejo, BOOT AND SHOE LABORER [employer] LABORER Lilian Cardoso, DO cs11 Daisha Vargas RN RN ko2 Marian Gabriel, Reg Reg hs2 Harleen Anderson2 Chart Complete MTDD
--- NOTE | 2016-12-26 03:26 | EDDOCDS ---
Physician Documentation [facility] Name: Jl Lerma Age: 61 yrs Sex: Male : 1955 Arrival Date: 12/23/2016 Time: 21:51 Bed 8 Private MD: Dana Harvey Ellen Disposition: 12/24/16 02:13 Discharged to Home/Self Care. Impression: Infectious gastroenteritis and colitis, unspecified - viral, Vomiting, Diarrhea, unspecified. - Condition is Stable. - Discharge Instructions: Clear Liquid Diet, [id number]. - Medication Reconciliation, Local Pharmacy Hours form. - Follow up: Dana Harvey; When: Call to arrange an appointment; Reason: Recheck today's complaints. - Problem is an ongoing problem. - Symptoms have improved. Historical: - Allergies: No known drug Allergies; - Home Meds: 1. Tylenol 325 mg Oral tab 2 tabs every 4 hours 2. zzquil (Last dose: 12/23/2016 20:00) 3. omeprazole 40 mg oral cpDR once daily 4. levemir 50 unit twice a day 5. lisinopril 10 mg Oral tab 6. hydrochlorothiazide 12.5 mg Oral cap 1 cap once daily 7. turmeric root extract 500 mg oral cap 8. Vitamin D Oral 50,000 unit weekly 9. trulicity Unknown - PMHx: GERD; Diabetes - IDDM: uncontrolled; Hypertension; Lyme Disease; skin CA; kidney Disease; - PSHx: none; - Social history: Smoking status: Patient states was never smoker of tobacco. No barriers to communication noted, The patient speaks fluent German, Speaks appropriately for age. - Family history: Not pertinent. - : The pt / caregiver states he / she is not on anticoagulants. Home medication list is obtained from the patient. - Exposure Risk Screening:: None identified. Vital Signs: 12/23 21:52 BP 132 / 76; Pulse 83; Resp 16; Temp 96.9(O); Pulse Ox 98% on R/A; Weight 79.38 kg / lr2 175 lbs (R); Height 5 ft. 5 in. (165.10 cm); Pain 10/10; 22:37 BP 141 / 85 (auto/); ko2 22:37 Pulse 78 MON; Pulse Ox 92% ; ko2 23:36 Pulse 88 MON; Pulse Ox 93% ; ko2 23:37 BP 175 / 97 (auto/); ko2 12/24 00:07 BP 167 / 92 (auto/); ko2 00:07 Pulse 88 MON; Pulse Ox 90% ; ko2 00:37 BP 176 / 92 (auto/); ko2 00:37 Pulse 82 MON; Pulse Ox 92% ; ko2 01:07 BP 140 / 71 (auto/); ko2 01:07 Pulse 92 MON; Pulse Ox 93% ; ko2 02:21 BP 152 / 92; Pulse 102; Resp 18; Temp 99.6(O); Pulse Ox 95% on R/A; Pain 0/10; kari 12/23 21:52 Body Mass Index 29.12 (79.38 kg, 165.10 cm) lr2 MDM: 12/23 22:08 ECG WITH READING ER PHYS+CARDIAG ordered. EDMS 22:26 Aspirin 324 mg PO once ordered. cs11 22:26 IV Saline Lock ordered. cs11 22:26 Chest, 1 View Ordered. EDMS 22:27 CBC Ordered. EDMS 22:27 MED Profile Ordered. EDMS 22:27 Pt & Aptt Ordered. EDMS 22:27 Cardiac Marker Panel Ordered. EDMS 23:00 Dilaudid - HYDROmorphone 0.5 mg IVP once ordered. cs11 23:00 MED Profile Reviewed. cs11 23:00 CBC Reviewed. cs11 23:00 Pt & Aptt Reviewed. cs11 23:00 Cardiac Marker Panel Reviewed. cs11 23:00 NS 0.9% 1000 ml IV at bolus once ordered. cs11 23:11 Metoclopramide 10 mg IV at 40 mg/hr once over 15 mins ordered. cs11 23:16 CT ABD & PELVIS: Oral Contrast Only Ordered. EDMS 23:16 CT Chest Without Contrast Ordered. EDMS 23:43 Financial registration complete. hs2 12/24 00:16 Diatrizoate Meglumine & Sodium Liquid 10 ml PO once; mix in 290cc of water ordered. ko2 00:16 Diatrizoate Meglumine & Sodium Liquid 10 ml PO once; mix in 290cc of water ordered. ko2 00:33 [facility] [place] [facility] Payment Agreement was scanned into [employer] and attached to record. hs2 01:59 GI Cocktail - (Alum-Mag Hydroxide-Simeth 30 ml, Lidocaine 10 ml, Hyoscyamine 10 ml) PO cs11 once; Pre-mixed 50mL unit dose ordered. 12/25 07:04 ED course: dr edith harvey faxed formal report of ct chest for fu mlg. ml Administered Medications: 12/23 22:38 Drug: Aspirin 324 mg [aspirin 81 mg chewable tablet (4 tabs)] Route: PO; ko2 23:14 Drug: Dilaudid - HYDROmorphone 0.5 mg [hydromorphone 1 mg/mL injection syringe (0.5 ko2 mL)] Route: IVP; Site: left antecubital; 23:14 Drug: NS 0.9% 1000 ml [sodium chloride 0.9 % intravenous solution] Route: IV; Rate: ko2 bolus; Site: left antecubital; 23:19 Drug: Metoclopramide 10 mg [metoclopramide 5 mg/mL injection solution] Route: IV; Rate: ko2 40 mg/hr; Infused Over: 15 mins; Site: left antecubital; 12/24 00:15 Drug: Diatrizoate Meglumine & Sodium 10 ml [diatrizoate meglumine and diat.sodium 66 ko2 %-10 % oral solution (10 mL)] Route: PO; 00:45 Drug: Diatrizoate Meglumine & Sodium 10 ml [diatrizoate meglumine and diat.sodium 66 ko2 %-10 % oral solution (10 mL)] Route: PO; 02:11 Drug: GI Cocktail - (Alum-Mag Hydroxide-Simeth Suspension 225 mg-200 mg-25 mg/5 mL 30 ko2 ml, Lidocaine Liquid 2 % 10 ml, Hyoscyamine Liquid 10 ml) Route: PO; Signatures: Dispatcher [employer] EDMS Soheila Cervantes MD MD ml Schiff, Craig, DO DO cs11 Daisha Vargas RN RN ko2 Marian Gabriel, Reg Reg hs2 The chart was reviewed and I authenticate all verbal orders and agree with the evaluation and treatment provided.Attachments: 00:33 [facility] Payment Agreement hs2 Chart Complete MTDD
--- NOTE | 2016-12-26 03:26 | EDDOCDS ---
Physician Documentation [facility] Name: Jl Lerma Age: 61 yrs Sex: Male : 1955 Arrival Date: 12/23/2016 Time: 21:51 Bed 8 Private MD: Dana Harvey Ellen Disposition: 12/24/16 02:13 Discharged to Home/Self Care. Impression: Infectious gastroenteritis and colitis, unspecified - viral, Vomiting, Diarrhea, unspecified. - Condition is Stable. - Discharge Instructions: Clear Liquid Diet, [id number]. - Medication Reconciliation, Local Pharmacy Hours form. - Follow up: Dana Harvey; When: Call to arrange an appointment; Reason: Recheck today's complaints. - Problem is an ongoing problem. - Symptoms have improved. Historical: - Allergies: No known drug Allergies; - Home Meds: 1. Tylenol 325 mg Oral tab 2 tabs every 4 hours 2. zzquil (Last dose: 12/23/2016 20:00) 3. omeprazole 40 mg oral cpDR once daily 4. levemir 50 unit twice a day 5. lisinopril 10 mg Oral tab 6. hydrochlorothiazide 12.5 mg Oral cap 1 cap once daily 7. turmeric root extract 500 mg oral cap 8. Vitamin D Oral 50,000 unit weekly 9. trulicity Unknown - PMHx: GERD; Diabetes - IDDM: uncontrolled; Hypertension; Lyme Disease; skin CA; kidney Disease; - PSHx: none; - Social history: Smoking status: Patient states was never smoker of tobacco. No barriers to communication noted, The patient speaks fluent Palauan, Speaks appropriately for age. - Family history: Not pertinent. - : The pt / caregiver states he / she is not on anticoagulants. Home medication list is obtained from the patient. - Exposure Risk Screening:: None identified. Vital Signs: 12/23 21:52 BP 132 / 76; Pulse 83; Resp 16; Temp 96.9(O); Pulse Ox 98% on R/A; Weight 79.38 kg / lr2 175 lbs (R); Height 5 ft. 5 in. (165.10 cm); Pain 10/10; 22:37 BP 141 / 85 (auto/); ko2 22:37 Pulse 78 MON; Pulse Ox 92% ; ko2 23:36 Pulse 88 MON; Pulse Ox 93% ; ko2 23:37 BP 175 / 97 (auto/); ko2 12/24 00:07 BP 167 / 92 (auto/); ko2 00:07 Pulse 88 MON; Pulse Ox 90% ; ko2 00:37 BP 176 / 92 (auto/); ko2 00:37 Pulse 82 MON; Pulse Ox 92% ; ko2 01:07 BP 140 / 71 (auto/); ko2 01:07 Pulse 92 MON; Pulse Ox 93% ; ko2 02:21 BP 152 / 92; Pulse 102; Resp 18; Temp 99.6(O); Pulse Ox 95% on R/A; Pain 0/10; kari 12/23 21:52 Body Mass Index 29.12 (79.38 kg, 165.10 cm) lr2 MDM: 12/23 22:08 ECG WITH READING ER PHYS+CARDIAG ordered. EDMS 22:26 Aspirin 324 mg PO once ordered. cs11 22:26 IV Saline Lock ordered. cs11 22:26 Chest, 1 View Ordered. EDMS 22:27 CBC Ordered. EDMS 22:27 MED Profile Ordered. EDMS 22:27 Pt & Aptt Ordered. EDMS 22:27 Cardiac Marker Panel Ordered. EDMS 23:00 Dilaudid - HYDROmorphone 0.5 mg IVP once ordered. cs11 23:00 MED Profile Reviewed. cs11 23:00 CBC Reviewed. cs11 23:00 Pt & Aptt Reviewed. cs11 23:00 Cardiac Marker Panel Reviewed. cs11 23:00 NS 0.9% 1000 ml IV at bolus once ordered. cs11 23:11 Metoclopramide 10 mg IV at 40 mg/hr once over 15 mins ordered. cs11 23:16 CT ABD & PELVIS: Oral Contrast Only Ordered. EDMS 23:16 CT Chest Without Contrast Ordered. EDMS 23:43 Financial registration complete. hs2 12/24 00:16 Diatrizoate Meglumine & Sodium Liquid 10 ml PO once; mix in 290cc of water ordered. ko2 00:16 Diatrizoate Meglumine & Sodium Liquid 10 ml PO once; mix in 290cc of water ordered. ko2 00:33 [facility] [place] was scanned into [employer] and attached to record. hs2 01:59 GI Cocktail - (Alum-Mag Hydroxide-Simeth 30 ml, Lidocaine 10 ml, Hyoscyamine 10 ml) PO cs11 once; Pre-mixed 50mL unit dose ordered. 12/25 07:04 ED course: dr edith harvey faxed formal report of ct chest for fu mlg. ml Administered Medications: 12/23 22:38 Drug: Aspirin 324 mg [aspirin 81 mg chewable tablet (4 tabs)] Route: PO; ko2 23:14 Drug: Dilaudid - HYDROmorphone 0.5 mg [hydromorphone 1 mg/mL injection syringe (0.5 ko2 mL)] Route: IVP; Site: left antecubital; 23:14 Drug: NS 0.9% 1000 ml [sodium chloride 0.9 % intravenous solution] Route: IV; Rate: ko2 bolus; Site: left antecubital; 23:19 Drug: Metoclopramide 10 mg [metoclopramide 5 mg/mL injection solution] Route: IV; Rate: ko2 40 mg/hr; Infused Over: 15 mins; Site: left antecubital; 12/24 00:15 Drug: Diatrizoate Meglumine & Sodium 10 ml [diatrizoate meglumine and diat.sodium 66 ko2 %-10 % oral solution (10 mL)] Route: PO; 00:45 Drug: Diatrizoate Meglumine & Sodium 10 ml [diatrizoate meglumine and diat.sodium 66 ko2 %-10 % oral solution (10 mL)] Route: PO; 02:11 Drug: GI Cocktail - (Alum-Mag Hydroxide-Simeth Suspension 225 mg-200 mg-25 mg/5 mL 30 ko2 ml, Lidocaine Liquid 2 % 10 ml, Hyoscyamine Liquid 10 ml) Route: PO; Signatures: Dispatcher [employer] EDMS Soheila Cervantes MD MD ml Schiff, Craig, DO DO cs11 Daisha Vargas RN RN ko2 Marian Gabriel, Reg Reg hs2 The chart was reviewed and I authenticate all verbal orders and agree with the evaluation and treatment provided.Attachments: 00:33 [facility] Payment Agreement hs2 Chart Complete MTDD
== END 2016-12-24 02:24 | disposition home or self-care (01) ==
LOC: M ED 21:51
DX: A08.4 Viral intestinal infection, unspecified (principal); R11.10 Vomiting, unspecified; R19.7 Diarrhea, unspecified; K21.9 Gastro-esophageal reflux disease without esophagitis; E10.9 Type 1 diabetes mellitus without complications; I10 Essential (primary) hypertension; N18.9 Chronic kidney disease, unspecified; Z85.828 Personal history of other malignant neoplasm of skin; Z79.4 Long term (current) use of insulin; Z79.899 Other long term (current) drug therapy
CPT/HCPCS: 36415; 71010; 71250; 74176; 80048; 82550; 82553; 85027; 85610; 85730; 93005; 96374; 96375; 99285; J1170; J2765; Q9963

== ENCOUNTER 2016-12-27 00:20 | Inpatient (IN) | payer BC ==
[~2016-12-27] VITALS: Ht 165.1 cm; Wt 76.9 kg
[2016-12-27] MEDS ORDERED: ONDANSETRON 4MG/2ML VIAL (J2405) IV ONE (03:15)
[2016-12-27] MEDS ORDERED: MAALOX 30 ML SUSP *UDC PO ONE (03:15)
[2016-12-27] MEDS ORDERED: NS 1,000 ML IV ONE ×2 (03:15→05:45)
[2016-12-27] MEDS ORDERED: MORPHINE 4 MG/ML 1ML SYRINGE IV PRN ×3 (03:15→09:30)
[2016-12-27 04:02] LABS: VENOUS O2 SATURATION 84.4 % (60.0-80.0); VENOUS PARTIAL PRESSURE CO2 43.5 mmHg (38.0-50.0); VENOUS PARTIAL PRESSURE O2 45.4 mmHg (30.0-50.0); VENOUS STANDARD HCO3 27.7 MEQ/L
[2016-12-27 04:06] LABS: BASO % 0.1 % (0.0-1.0); EOS % 0.3 % (0.0-3.0); LARGE UNSTAINED CELL # 0.1 K/mm3 (0.0-0.4); LARGE UNSTAINED CELL % 1.2 % (0.0-4.0); LYMPH # 0.8 K/mm3 (1.5-4.5); LYMPH % 6.3 % (24.0-44.0); MEAN CORPUSCULAR HEMOGLOBIN 30.6 pg (27.0-33.0); MEAN CORPUSCULAR HGB CONC 34.7 g/dl (32.0-36.5); MONO # 0.4 K/mm3 (0.0-0.8); MONO % 3.8 % (0.0-5.0); NEUTROPHILS # 8.7 K/mm3 (1.8-7.7); NEUTROPHILS % 88.2 % (36.0-66.0); PLATELET COUNT, AUTOMATED 181 k/mm3 (150-450); RED CELL DISTRIBUTION WIDTH 12.6 % (11.5-14.5); WHITE BLOOD COUNT 9.9 K/mm3 (4.0-10.0)
[2016-12-27 04:26] LABS: ALBUMIN 2.7 GM/DL (3.2-5.2); ALBUMIN/GLOBULIN RATIO 0.77 (1.00-1.93); BILIRUBIN,DIRECT 0.1 MG/DL (0.0-0.2); BILIRUBIN,TOTAL 0.3 MG/DL (0.2-1.0); CALCIUM LEVEL 7.3 MG/DL (8.8-10.2); CREATININE FOR GFR 3.72 MG/DL (0.70-1.30); GLOMERULAR FILTRATION RATE 17.8 (>49); POTASSIUM SERUM 3.6 MEQ/L (3.5-5.1); TOTAL PROTEIN 6.2 GM/DL (6.4-8.2)
--- NOTE | 2016-12-27 05:20 | REPUSA ---
CLINICAL HISTORY: Cough. TECHNIQUE: Multiple axial CT images were obtained through the thorax without IV contrast material. COMMENTS: Comparison is made to the prior exam performed on 12/24/2016. Increased bilateral subsegmental atelectasis and groundglass densities of the lung bases. There is no evidence of pleural or parenchymal-based mass. There are no pleural effusions. There is n o evidence of hilar or mediastinal lymphadenopathy. The heart and great vessels are within normal malcolm its. The visualized portions of the liver are of uniform attenuation without mass or defect. There is no i ntra or extrahepatic biliary ductal dilatation. The spleen is unremarkable. The visualized pancreas i s of normal contour and attenuation characteristics. There is no evidence of adrenal mass. The visual ized portions of the kidneys present no abnormalities. The bony structures are free of lytic or blastic lesions. Unchanged moderate sliding hiatal hernia. IMPRESSION: Increased bilateral basilar airspace disease of the lungs. Thank you for your kind referral of this patient.
--- NOTE | 2016-12-27 05:30 | REPUSA ---
CLINICAL HISTORY: Abdominal pain. TECHNIQUE: Multiple axial, sagittal and coronal CT images were obtained through the abdomen and pelvi s without administration of oral or IV contrast material. COMMENTS: Comparison is made to the prior exam performed on 12/24/2016. The liver is of uniform attenuation without mass or defect. There is no intra or extrahepatic biliary ductal dilatation. The spleen is normal. The gallbladder is distended. This has increased. Increased pericholecystic fat stranding and interval appearance of a 3.2 cm melissa-cholecystic phlegmon. There i s no evidence of adrenal mass. Mild increase in peripancreatic fat stranding. Mild increase in the th ickening of the wall of the second portion of the duodenum. The kidneys are normal in size, shape and configuration. No renal or ureteral calculi are identified. There is no hydroureter or hydronephrosis. There is no evidence for appendicitis.No evidence for small or large bow There is no bowel obstruction. There is no evidence of abdominal ascites or lymphadenopathy. There is no evidence of intrinsic or extrinsic bladder mass. There is no pelvic ascites or lymphadeno crystal. Unchanged moderate sliding type hiatal hernia. Mild diffuse thickening of the wall of the bladder. Images of the lung bases show no evidence of pleural or parenchymal mass. There are no pleural effusi ons. The bony structures are free of lytic or blastic lesions. Multilevel degenerative changes are seen in volving the thoracolumbar spine. Scattered calcifications are seen involving the aorta and major branches compatible with atherosclero sis. IMPRESSION: Acute cholecystitis. This has increased since the prior exam. Interval appearance of a pericholecystic phlegmon formation measuring 3.2 cm. This was not present on prior exam. Increased mild acute inflammatory changes of the pancreas. Increased adjacent inflammatory changes of the second portion of the duodenum. Unchanged hiatal hernia. Thank you for your kind referral of this patient.
[2016-12-27] MEDS ORDERED: DEXTROSE 50% 50 ML VIAL As Ordered ONE (05:45)
[2016-12-27] MEDS ORDERED: DEXTROSE 50% 50 ML SYRINGE IV STA (05:45)
[2016-12-27] MEDS ORDERED: DEXTROSE 50% 50 ML SYRINGE As Ordered ONE (05:45)
[2016-12-27] MEDS ORDERED: PIPERACILLIN/TAZOBACTAM SOD 3.375 GM in D5W MINI-BAG PLUS 50 ML IV ONE (06:00)
[2016-12-27 06:19] LABS: ABG BASE EXCESS 1.1 (-2.0-2.0); ABG HCO3 24.8 MEQ/L (22.0-26.0); ABG PARTIAL PRESSURE CO2 36.1 mmHg (35.0-45.0); ABG PARTIAL PRESSURE O2 173.2 mmHg (75.0-100.0); ABG STANDARD HCO3 25.5 MEQ/L (22.0-26.0); ABG TOTAL CO2 25.9 MEQ/L (23.0-31.0); ABG pH (ARTERIAL) 7.455 UNITS (7.350-7.450)
[2016-12-27] MEDS ORDERED: OMEP40CA2 PO (07:34)
[2016-12-27] MEDS ORDERED: LISI10TA2 PO (07:34)
[2016-12-27] MEDS ORDERED: DRIS50002 PO (07:34)
[2016-12-27] MEDS ORDERED: ALBU83IN INH (07:34)
[2016-12-27] MEDS ORDERED: INSUH10VL SC (07:34)
[2016-12-27] MEDS ORDERED: INSUDET SC (07:34)
[2016-12-27] MEDS ORDERED: TRUL0.5I SC (07:34)
[2016-12-27] MEDS ORDERED: AMLO5TAB2 PO (07:34)
[2016-12-27] MEDS ORDERED: LISINOPRIL 10 MG TAB PO SCH (09:00)
[2016-12-27] MEDS ORDERED: amLODIPine 5 MG TAB PO SCH (09:00)
[2016-12-27] MEDS ORDERED: METOCLOPRAMIDE INJ 10MG/2ML VIAL (J2765) IV PRN (09:30)
[2016-12-27] MEDS ORDERED: PROMETHAZINE INJ 25 MG/ML VIAL (J2550) IV PRN (09:30)
[2016-12-27] MEDS ORDERED: GLUCAGON FOR INJ 1 MG VIAL (J1610) SC PRN (09:30)
[2016-12-27] MEDS ORDERED: GLUCOSE 4 GM CHEW TABLET PO PRN (09:30)
[2016-12-27] MEDS ORDERED: cefTRIAXone SOD 1 GM in D5W MINI-BAG PLUS 50 ML IV ONE (09:30)
[2016-12-27] MEDS ORDERED: IPRATROPIUM 0.5MG/ALBUTEROL 2.5MG INH SOL UD 3ML (DUONEB)(J7620) NEB PRN (09:30)
[2016-12-27] MEDS ORDERED: DEXTROSE 50% 50 ML SYRINGE IV PRN (09:30)
[2016-12-27] MEDS ORDERED: MORPHINE 2 MG/ML 1ML SYRINGE IV PRN (09:30)
[2016-12-27] MEDS ORDERED: ACETAMINOPHEN 325 MG TAB PO ONE (10:30)
--- NOTE | 2016-12-27 10:40 | HPE ---
DATE OF ADMISSION: 12/27/2016 CHIEF COMPLAINT: Nausea, vomiting, abdominal pain. BRIEF HISTORY OF PRESENT ILLNESS: The patient has had some right-sided abdominal pain for quite awhile now and he said that it has been going on for about a month. Over the last four days, he developed severe right-sided abdominal pain with some nausea and vomiting. He ended up having no evidence of diarrhea, no hematemesis and no melanotic stools. He does not recall an episode of fatty food intolerance of biliary colic in the past. He has had no other complaints at this time, but did have a slight cough when he was seen in the emergency room two days ago. When he was evaluated at that time, he was diagnosed with a viral gastroenteritis given that he had a normal white count and was discharged to home after having a CAT scan. The CAT scan showed no significant abnormalities. CAT scan of the chest showed some bilateral lower lobe atelectasis, infiltrates, hiatal hernia, but no other significant abnormality. He was started on some doxycycline reportedly and now presents for persistent/increasing nausea, vomiting, abdominal pain and also has had some diarrhea associated with this as well. PAST MEDICAL HISTORY: Significant for history of gastroesophageal (GE) reflux, history of diabetes mellitus - insulin dependent, history of hypertension, history of Lyme disease, history of skin cancer, history of kidney disease. MEDICATIONS (include): - Tylenol - omeprazole - Levemir insulin - lisinopril - hydrochlorothiazide - Tumeric - vitamin D3 - Trulicity PHYSICAL EXAMINATION: Reveals a 61-year-old male who looks stated age. HEENT is unremarkable. Neck supple without adenopathy. Lungs are clear to auscultation without crackles, wheezes or rhonchi, although he does have some decreased breath sounds bilaterally at the bases posteriorly and there are a few little crackles appreciated, but no significant wheezes appreciated Anteriorly, he is clear. Heart is regular with a few irregular beats. Abdomen is distended, tympanitic throughout, without guarding or rebound. No significant peritoneal signs are appreciated. He has some mild discomfort in the right upper quadrant with deep palpation. His CAT scan was performed and does reveal some inflammatory changes around the gallbladder itself consistent with probable acute cholecystitis and some mild inflammatory changes around the pancreas in this area. His liver function tests (LFTs) are normal on this admission. His coagulations are fine. His hematocrit has dropped slightly with a white count that is 9.9. IMPRESSION AND PLAN: The patient has no evidence of gastrointestinal (GI) bleeding at this time, although hematocrit drop is of undetermined etiology. He has not had any melanotic stools or bright red blood per rectum. He complains of right upper quadrant pain, although this is mild and I anticipate this is probably acute cholecystitis which may be causing an ileus. Will make him nothing by mouth (n.p.o.), IV fluids, IV antibiotics and have medicine make recommendations concerning all his medical issues of hypertension, respiratory, as well as, diabetic issues. We appreciate their input. I have discussed this with the medicine service and they will be glad to see him. Otherwise, at this time, will see how he does over the next 24-48 hours with antibiotics. Unfortunately, given that this has probably been going on for about five days now, I anticipate the inflammatory response would be better treated with antibiotic treatment and then elective outpatient cholecystectomy, but will see once again how he does over the ensuing 24-48 hours.
[2016-12-27 10:50] VITALS: BP 130/63
[2016-12-27] MEDS: metroNIDAZOLE 500 MG in APPROPRIATE DILUENT 1 EA IV SCH ×2 (11:00→18:15)
[2016-12-27] MEDS: PANTOPRAZOLE 40MG INJ (PROTONIX) (C9113) IV SCH (11:23)
[2016-12-27] MEDS: D5W/LR 1,000 ML IV SCH ×2 (11:24→18:15)
[2016-12-27] MEDS ORDERED: CIPROFLOXACIN 400 MG in APPROPRIATE DILUENT 1 EA IV SCH (12:00)
[2016-12-27 14:00] VITALS: BP 133/74
[2016-12-27] MEDS: IPRATROPIUM 0.5MG/ALBUTEROL 2.5MG INH SOL UD 3ML (DUONEB)(J7620) NEB SCH ×2 (14:00→20:00)
[2016-12-27] MEDS: CIPROFLOXACIN 200 MG in APPROPRIATE DILUENT 1 EA IV SCH (14:55)
[2016-12-27] MEDS: NORCO, ANEXSIA 5/325MG TABLET (HYDROcodone/ACETAMINOPHEN) PO PRN ×2 (15:10→23:18)
[2016-12-27 18:00] VITALS: BP 123/70
[2016-12-27] MEDS: HumaLOG INSULIN (NovoLOG) PER UNIT SC SCH ×2 (18:00→23:42)
--- NOTE | 2016-12-27 19:48 | CR ---
DATE OF CONSULTATION: 12/27/2016 This is completed for Dr. Jose Manuel Rubi PRIMARY CARE PROVIDER: [facility] INSTRUCTIONAL TECHNOLOGY TEACHER: Dr. Cielo Garduno BOILER MAKER: Dr. Shine CHIEF COMPLAINT: Nausea, vomiting, abdominal pain. BRIEF SUMMARY OF PRESENTATION: This is a 61-year-old gentleman who has been experiencing ongoing right-sided abdominal pain over the course of a month. Did present to the emergency department on December 23 and was diagnosed with a viral gastroenteritis. At that time had a relatively unremarkable abdominal CT. He went home on oral antibiotics, presumably for a slight cough with bilateral lower lobe atelectasis or infiltrates. Presented with increasing nausea, vomiting, abdominal pain and was found to have acalculous cholecystitis. Was admitted to Dr. Rubi's service. Dr. Rubi has asked me to see the patient in consultation. Right now, the patient says his abdomen is feeling better. He has been getting relief with pain medication. He says his abdominal distention has improved. He is very thirsty and has been passing flatus. He would like to have his gallbladder out this evening and to have an orange. PAST MEDICAL HISTORY: Notable for: 1. Psoriasis. 2. Gastroesophageal reflux disease (GERD). 3. Insulin-dependent diabetes. He has been on insulin for around 10 years. 4. Hypertension. 5. History of Lyme disease and associated arthritis. 6. History of skin cancer. 7. History of chronic kidney disease with a baseline creatinine that would appear to be around 1.5-1.7. MEDICATIONS AT HOME: Tylenol, omeprazole, Levemir, lisinopril, hydrochlorothiazide, vitamin D, Trulicity. FAMILY HISTORY: Notable for a mother who is 83, alive and well, a father who at age 72 with diabetes, and a brother and sister with diabetes. SOCIAL HISTORY: He has not used any alcohol in 3 weeks. He stopped associated with the abdominal pain. He had normally had a couple whiskeys per night. He is a nonsmoker. He works at [employer]. He is lifelong resident of the [facility]. ALLERGIES: He has no known allergies. REVIEW OF SYSTEMS: Notable for no headache. No visual change. No runny nose. No sore throat. No neck pain. Does not complain of any cough. He is not particularly short of breath. He has good exercise tolerance. He is able to work physically all day long. He never experiences chest pain. Never experiences shortness of breath with activity. He does not experience orthopnea, paroxysmal nocturnal dyspnea, palpitations. Does not suffer from lower extremity edema. He has never had a stress test. Abdomen is notable for right-sided pain and passing flatus but is otherwise unremarkable PHYSICAL EXAMINATION: Temperature is 97.6, pulse 94, respiratory rate 20, blood pressure 123/70, 94% on room air. Intake and output notable for a positive fluid balance of 700. Urine output thus far is 350. Weight 78.7 kg. He is awake, appropriately interactive, pleasantly conversant. Head is normocephalic. Sinuses nontender. Pupils equally round and reactive, anicteric. Noninjected. Nasal septum is midline. Mucous membranes are tacky. Neck is supple, thick. Inspiratory to expiratory (I-to-E) ratio is 1:3 with decreased aeration and effort throughout. He is speaking in complete sentences. There is no accessory muscle use. Heart is distant sounding, normal S1, S2, borderline tachycardic. Radial pulses 2+ bilaterally. Capillary refill less than 2 seconds. I appreciate no murmur. Abdomen is distended, tympanic. Mild diffuse tenderness without rebound or guarding. There is no significant lower extremity edema. There are psoriatic plaques noted on his anterior thighs. There is no sacral edema. He has normal mood and affect. There are labs available for me to review, which include a white count 9.9, hemoglobin 12.1, and platelets of 181. Sodium 134, potassium 3.6, chloride 94, carbon dioxide 28, BUN 58, creatinine 3.72 with a glucose of 55. Lactic acid this morning was 1.4. Calcium 7.3, total protein 6.2, albumin 2.7. Blood gases 7.44, 36, 173, 24. Fingersticks have ranged between 101-170. Blood cultures are pending. Abdominal and pelvic CT shows acute cholecystitis. Pericholecystic phlegmon, measuring 3.2 cm. Mild acute inflammatory changes of the pancreas and inflammatory change to the second part of the duodenum. Hiatal hernia. CT scan of the chest shows bibasilar airspace disease. ASSESSMENT: This is a 61-year-old with acalculous cholecystitis who is being followed for medical management. 1. Gastrointestinal (GI). Nutrition, pain management, antibiotics, and surgical plan per Dr. Rubi. 2. Patient has evidence of acute renal failure in the setting of chronic kidney disease, stage III. Will at this point continue with IV fluids and withhold his angiotensin-converting enzyme (LOLIS) inhibitor. There is no evidence of hydronephrosis on CT scan. He is likely prerenal. 3. Patient has insulin-dependent diabetes. He will be starting on a sliding scale. His fingersticks have trended somewhat low. His glucose early in the morning on December 27 was 55. Sliding scale is appropriate for now. He may require long-acting insulin as time goes forward. I do note that his fluid does contain dextrose. 4. I suspect the patient has obstructive sleep apnea that has yet to be diagnosed. He suffers from daytime somnolence and snores. Has a body habitus that would suggest that he possibly could have sleep apnea. I would recommend postoperative sleep apnea protocol. 5. Patient has hiatal hernia and is continued on proton pump inhibitor (PPI). 6. Patient has history of hypertension. I would allow his blood pressure to run up a little higher in this setting. Will put hold parameters on his medications. Again, will hold lisinopril and hydrochlorothiazide. 7. Deep vein thrombosis (DVT) prophylaxis would be indicated in this setting, I would recommend heparin and will order it. 8. Patient has bibasilar airspace disease, which I suspect is atelectasis. I have ordered incentive spirometry. This should improve as his distention improves. [facility]
[2016-12-27] MEDS: HEPARIN SOD (PORCINE) 5000 UNITS/ML VIAL SQ SCH (20:09)
[2016-12-27] MEDS ORDERED: HumaLOG INSULIN (NovoLOG) PER UNIT SC SCH (21:00)
[2016-12-27 22:00] VITALS: BP 127/70
[2016-12-27] MEDS: zolPIDEM TARTRATE 10MG TAB PO PRN (23:42)
[2016-12-28] MEDS: CIPROFLOXACIN 200 MG in APPROPRIATE DILUENT 1 EA IV SCH ×2 (01:35→13:34)
[2016-12-28] MEDS: D5W/LR 1,000 ML IV SCH ×3 (01:37→16:41)
[2016-12-28] MEDS: IPRATROPIUM 0.5MG/ALBUTEROL 2.5MG INH SOL UD 3ML (DUONEB)(J7620) NEB SCH ×4 (01:45→20:41)
[2016-12-28] MEDS: metroNIDAZOLE 500 MG in APPROPRIATE DILUENT 1 EA IV SCH ×3 (03:14→18:26)
[2016-12-28] MEDS: HumaLOG INSULIN (NovoLOG) PER UNIT SC SCH ×3 (05:50→17:27)
[2016-12-28 06:00] VITALS: BP 150/86
[2016-12-28 06:49] LABS: MEAN CORPUSCULAR HEMOGLOBIN 30.3 pg (27.0-33.0); MEAN CORPUSCULAR HGB CONC 32.3 g/dl (32.0-36.5); RED CELL DISTRIBUTION WIDTH 13.1 % (11.5-14.5); WHITE BLOOD COUNT 10.5 K/mm3 (4.0-10.0)
[2016-12-28 07:03] LABS: CALCIUM LEVEL 7.5 MG/DL (8.8-10.2); CREATININE FOR GFR 2.11 MG/DL (0.70-1.30); GLOMERULAR FILTRATION RATE 34.3 (>49); MEAN CORPUSCULAR VOLUME 93.6 fl (80.0-96.0); POTASSIUM SERUM 4.1 MEQ/L (3.5-5.1)
[2016-12-28] MEDS ORDERED: amLODIPine 10 MG TAB PO ONE (07:15)
[2016-12-28] MEDS: HEPARIN SOD (PORCINE) 5000 UNITS/ML VIAL SQ SCH ×2 (08:20→20:17)
[2016-12-28] MEDS: PANTOPRAZOLE 40MG INJ (PROTONIX) (C9113) IV SCH (08:20)
--- NOTE | 2016-12-28 10:16 | IPN ---
DATE OF SERVICE: 12/28/2016 A 61-year-old gentleman seen at bedside. No overnight issues. No chest pain, nausea, or vomiting, but he does continue to have some abdominal discomfort. Followed by surgery for his acalculous colicystitis. Temperature is 99.3, pulse 104, respiratory rate 17, blood pressure (BP) 150/86, SpO2 is 98% on 3 liters. General: The patient appears to be in no acute distress. He is alert, pleasant. HEENT: Unremarkable. Lungs: Clear. Heart: Regular rate and rhythm. Abdomen is soft. He does have some vague palpable right upper quadrant tenderness. No rebound. Normoactive bowel sounds. Extremities: No edema. LABORATORIES: White count is 10.5, hemoglobin 11.6, platelets 194. Sodium 137, potassium 4.1, chloride 99, bicarbonate 29, anion gap 35, creatinine 2.11 down from 3.72, glucose is 210, calcium is 7.5. Blood cultures are negative times two. ASSESSMENT AND PLAN: 1. Abdominal pain with right upper quadrant pain and acalculous cholecystitis, managed by surgery. Nutrition, pain management, antibiotics, and surgical plan is by the surgical team. 2. Acute kidney injury superimposed on chronic kidney disease stage III. We are still on his angiotensin-converting enzyme (LOLIS) inhibitor for the time being. No evidence of hydronephrosis on CT scan. This is likely prerenal and will continue with intravenous (IV) fluids for the time being. 3. Diabetes. Continue with fingersticks and sliding scale coverage as needed. 4. History of suspected obstructive sleep apnea with daytime somnolence. Would recommend sleep apnea protocol should he go to surgery. 5. History of hiatal hernia. Continue proton pump inhibitor (PPI). 6. History of hypertension. Hold parameters on his medications. Again, holding lisinopril, as well as hydrochlorothiazide, currently 7. Bibasilar airspace disease, likely atelectasis. Ordered incentive spirometry yesterday. 8. Deep venous thrombosis (DVT) prophylaxis. Currently, with subcutaneous heparin. Will continue to follow daily with this patient. Should any other questions arise, please do not hesitate to contact the hospitalist service.
[2016-12-28 14:00] VITALS: BP 136/65
--- NOTE | 2016-12-28 14:54 | REP ---
PORTABLE CHEST: AP portable view of the chest is performed and compared to prior study of 12/23/2016. There are bibasilar infiltrates again noted. These appear similar to the CT of the chest 12/27/2016. The cardiomediastinal silhouette is unchanged. IMPRESSION: Bibasilar infiltrates. Signed by Conor Liu MD 12/28/2016 08:03 P
[2016-12-28] MEDS ORDERED: FUROSEMIDE 40 MG/4 ML VIAL (J1940) IV ONE (16:45)
[2016-12-28 18:00] VITALS: BP 124/60
[2016-12-28] MEDS: zolPIDEM TARTRATE 10MG TAB PO PRN (20:17)
[2016-12-28 20:43] VITALS: O2SAT 91
[2016-12-28 22:00] VITALS: BP 140/75
[2016-12-29] VITALS (7 sets, daily range): BP systolic 120–143; BP diastolic 66–76; O2SAT 91
[2016-12-29] MEDS ORDERED: CEFEPIME HCL 2 GM in D5W MINI-BAG PLUS 50 ML IV SCH ×2
[2016-12-29] MEDS: HumaLOG INSULIN (NovoLOG) PER UNIT SC SCH ×5 (00:07→21:00)
[2016-12-29] MEDS: CIPROFLOXACIN 200 MG in APPROPRIATE DILUENT 1 EA IV SCH ×2 (00:47→13:03)
[2016-12-29] MEDS: metroNIDAZOLE 500 MG in APPROPRIATE DILUENT 1 EA IV SCH ×3 (02:20→18:35)
[2016-12-29] MEDS: NORCO, ANEXSIA 5/325MG TABLET (HYDROcodone/ACETAMINOPHEN) PO PRN ×2 (02:20→18:34)
[2016-12-29] MEDS: IPRATROPIUM 0.5MG/ALBUTEROL 2.5MG INH SOL UD 3ML (DUONEB)(J7620) NEB SCH ×4 (03:01→20:28)
[2016-12-29 06:10] LABS: MEAN CORPUSCULAR HEMOGLOBIN 30.2 pg (27.0-33.0); MEAN CORPUSCULAR HGB CONC 33.1 g/dl (32.0-36.5); MEAN CORPUSCULAR VOLUME 91.2 fl (80.0-96.0); RED CELL DISTRIBUTION WIDTH 12.8 % (11.5-14.5); WHITE BLOOD COUNT 8.7 K/mm3 (4.0-10.0)
[2016-12-29 06:22] LABS: CALCIUM LEVEL 7.7 MG/DL (8.8-10.2); CREATININE FOR GFR 1.84 MG/DL (0.70-1.30); GLOMERULAR FILTRATION RATE 40.1 (>49); POTASSIUM SERUM 3.9 MEQ/L (3.5-5.1)
[2016-12-29] MEDS: PANTOPRAZOLE 40MG INJ (PROTONIX) (C9113) IV SCH (08:19)
[2016-12-29] MEDS: HEPARIN SOD (PORCINE) 5000 UNITS/ML VIAL SQ SCH ×2 (08:19→20:51)
[2016-12-29] MEDS: amLODIPine 10 MG TAB PO SCH (08:20)
[2016-12-29] MEDS ORDERED: INFLUENZA QUADRIVALENT PF VACCINE 0.5ML SYRINGE/VIAL (90686) IM ONE (09:00)
--- NOTE | 2016-12-29 10:12 | REP ---
CHEST, TWO VIEWS: Two views of the chest are performed and compared to prior study of 12/28/2016. Bibasilar infiltrates/atelectasis appears essentially unchanged. There appears to be a small right effusion. There is mild cardiomegaly. The mediastinal silhouette is unchanged. IMPRESSION: No change in bibasilar infiltrates/atelectasis. Small right effusion. Signed by Conor Liu MD 12/29/2016 01:56 P
--- NOTE | 2016-12-29 10:59 | IPN ---
DATE: 12/29/2016 61-year-old gentleman seen at bedside. Feels that he is breathing a little better today but he is still requiring quite a bit of supplemental oxygen. Denies overnight fevers, chills, chest pain, nausea, vomiting, no abdominal pain currently but does feel distended. OBJECTIVE: Temperature is 97.3, pulse 92, respiratory rate is 20, blood pressure 120/72, SpO2 is 91% on 5 liters. GENERAL: The patient appears to be in no acute distress. He is alert, pleasant to talk to, is able to speak in complete sentences. He does have some minimal JVD noted, it is at approximately 3-4 cm. LUNGS: Diminished bibasilar breath sounds with occasional crackles. HEART: Regular rate and rhythm. ABDOMEN: Distended but positive bowel sounds. No masses or rebound. EXTREMITIES: Some trace edema at the ankles. LABORATORY DATA: White count is 8.7, hemoglobin 10.9, platelets 245,000, sodium 136, potassium 3.9, chloride 98, bicarbonate 29, anion gap 9, BUN is 27, creatinine 1.84, glucose is 216. Repeat chest x-ray today. Small right effusion is noted. No basilar infiltrate or atelectasis. ASSESSMENT/PLAN: 1. Abdominal pain with right upper quadrant pain and acalculous cholecystitis managed by surgery. 2. Acute kidney injury superimposed on chronic kidney disease (CKD) stage III. Does show quite a bit of improvement. We did diurese him yesterday and his creatinine appears to be moving towards baseline. CT scan of the abdomen and pelvis did not demonstrate any signs of hydronephrosis or signs of obstructive uropathy and this most likely was prerenal however, we may have acutely volume overloaded him. 3. Diabetes. Continue fingersticks, sliding scale as needed. 4. Suspected obstructive sleep apnea (CESAR) with daytime somnolence. Should have CESAR protocol should he get his surgery. 5. Hiatal hernia. Proton pump inhibitor (PPI). 6. History of hypertension. Hold parameters with his medications. Again, hold his lisinopril and hydrochlorothiazide currently. 7. Basilar air space disease with likely atelectasis. Continue incentive spirometry. 8. Deep venous thrombosis (DVT) prophylaxis with subcutaneous heparin. DISPOSITION: The patient does appear to be doing well overall, however he is still requiring some oxygen and I am going to give him an additional dose of Lasix 40 mg times one. I have held his IV fluids currently. Will reevaluate to see how he is doing later today.
[2016-12-29] MEDS ORDERED: FUROSEMIDE 40 MG/4 ML VIAL (J1940) IV ONE (11:00)
[2016-12-29] MEDS ORDERED: GLUCOSE 4 GM CHEW TABLET PO PRN (12:00)
[2016-12-29] MEDS ORDERED: GLUCAGON FOR INJ 1 MG VIAL (J1610) SC PRN (12:00)
[2016-12-29] MEDS ORDERED: DEXTROSE 50% 50 ML SYRINGE IV PRN (12:00)
[2016-12-29] MEDS: ONDANSETRON 4MG/2ML VIAL (J2405) IV PRN (13:45)
[2016-12-29] MEDS: zolPIDEM TARTRATE 10MG TAB PO PRN (20:51)
[2016-12-30] MEDS: IPRATROPIUM 0.5MG/ALBUTEROL 2.5MG INH SOL UD 3ML (DUONEB)(J7620) NEB SCH ×4 (01:22→20:17)
[2016-12-30 02:00] VITALS: BP 123/74
[2016-12-30] MEDS: metroNIDAZOLE 500 MG in APPROPRIATE DILUENT 1 EA IV SCH ×3 (02:37→17:49)
[2016-12-30] MEDS: CIPROFLOXACIN 200 MG in APPROPRIATE DILUENT 1 EA IV SCH ×2 (02:37→14:40)
[2016-12-30 06:00] VITALS: BP 117/74
[2016-12-30 06:24] LABS: MEAN CORPUSCULAR HEMOGLOBIN 29.8 pg (27.0-33.0); MEAN CORPUSCULAR HGB CONC 32.2 g/dl (32.0-36.5); MEAN CORPUSCULAR VOLUME 92.6 fl (80.0-96.0); RED CELL DISTRIBUTION WIDTH 12.7 % (11.5-14.5); WHITE BLOOD COUNT 8.3 K/mm3 (4.0-10.0)
[2016-12-30 06:38] LABS: CALCIUM LEVEL 7.9 MG/DL (8.8-10.2); CREATININE FOR GFR 1.79 MG/DL (0.70-1.30); GLOMERULAR FILTRATION RATE 41.4 (>49)
[2016-12-30] MEDS: amLODIPine 10 MG TAB PO SCH (08:18)
[2016-12-30] MEDS: HumaLOG INSULIN (NovoLOG) PER UNIT SC SCH ×4 (08:18→20:42)
[2016-12-30] MEDS: HEPARIN SOD (PORCINE) 5000 UNITS/ML VIAL SQ SCH ×2 (08:18→20:30)
[2016-12-30] MEDS: PANTOPRAZOLE 40MG INJ (PROTONIX) (C9113) IV SCH (08:19)
[2016-12-30 10:00] VITALS: BP 128/74
[2016-12-30] MEDS: SIMETHICONE 80 MG CHEW TAB PO SCH ×4 (10:50→20:30)
[2016-12-30] MEDS ORDERED: FUROSEMIDE 40 MG/4 ML VIAL (J1940) IV ONE (12:00)
[2016-12-30] MEDS: ONDANSETRON 4MG/2ML VIAL (J2405) IV PRN (12:48)
[2016-12-30 14:00] VITALS: BP 125/70
[2016-12-30 18:00] VITALS: BP 130/71
--- NOTE | 2016-12-30 18:11 | IPNPDOC ---
Date Seen The patient was seen on 12/30/16. Progress Note Hospitalist Progress Note Subjective: The patient reports overall feeling well, but he has had difficulty tolerating the regular diet today Objective: Physical Exam: Vitals: Vital Sign - Last 24 Hours 12/29/16 12/29/16 12/29/16 12/29/16 18:34 19:30 22:00 22:13 Temp 97.4 Pulse 85 Resp 18 18 18 B/P 128/66 Pulse Ox 92 90 O2 Delivery Nasal Cannula Nasal Cannula Nasal Cannula O2 Flow Rate 4.0 4.0 4.0 12/30/16 12/30/16 12/30/16 12/30/16 02:00 06:00 08:18 08:20 Temp 97.4 98.3 Pulse 96 95 94 Resp 18 18 B/P 123/74 117/74 117/65 Pulse Ox 89 92 O2 Delivery Nasal Cannula Nasal Cannula Nasal Cannula O2 Flow Rate 4.0 4.0 4.0 12/30/16 12/30/16 10:00 14:00 Temp 96.4 96.7 Pulse 90 91 Resp 18 18 B/P 128/74 125/70 Pulse Ox 95 94 O2 Delivery Nasal Cannula Nasal Cannula O2 Flow Rate 4.0 4.0 General: Awake, alert, no acute distress HEENT: Normocephalic, atraumatic, extraocular movements intact CV: Regular rate and rhythm Lungs: Clear to auscultation bilaterally Abd: Soft, nontender Extremities: No edema Neuro: Alert And oriented 3 Psych: Normal mood and affect Labs and Imaging: Laboratory Tests 12/30/16 06:04 Calcium Level 7.9 L, Red Blood Count 3.78 L, Mean Corpuscular Volume 92.6, Mean Corpuscular Hemoglobin 29.8, Mean Corpuscular Hemoglobin Concent 32.2, Red Cell Distribution Width 12.7 Assessment and Plan: 61-year-old male with psoriasis, GERD, diabetes mellitus type 2, hypertension, history of Lyme disease and associated arthritis, CK D stage III who was admitted by Dr. Rubi for a calculus cholecystitis. We have been consulted for medical management. 1. A calculus cholecystitis: Management as per Dr. Rubi. Currently on Cipro and Flagyl. 2. Diabetes mellitus type 2: Currently holding home trulicity and Levemir. Since the patient is having difficulty tolerating advancing his diet today, we will continue only the sliding scale insulin and will not reintroduce long- acting insulin until he is tolerating his diet more easily. 3. Hypertension: Continue home Norvasc. 4. Chronic kidney disease stage III: Baseline creatinine appears to be in the mid ones. He had an acute kidney injury upon admission, but his BUN and creatinine have steadily trended down and his creatinine is currently 1.79. Continue to monitor. 5. Hypoxia: Patient does not use any oxygen chronically, but he continues to require approximately 4 L even at rest. A chest x-ray yesterday showed concern for a small right effusion. The patient diuresed well with the dose of Lasix yesterday so we will give another dose today. DVT prophylaxis: Heparin Dispo: at the discretion of the primary team VS, I&O, 24H, Fishbone Vital Signs/I&O Vital Signs Date Time Temp Pulse Resp B/P Pulse Ox O2 Delivery O2 Flow Rate FiO2 12/30/16 14:00 96.7 91 18 125/70 94 Nasal Cannula 4.0 I&O- Last 24 Hours up to 6 AM 12/30/16 06:00 Intake Total 1890 ml Output Total 1825 ml Balance 65 ml Laboratory Data 24H LABS Laboratory Tests 2 12/30/16 06:04: Anion Gap 9, Blood Urea Nitrogen 24H, Creatinine 1.79H, Sodium Level 138, Potassium Level 4.0, Chloride Level 95L, Carbon Dioxide Level 34H, Calcium Level 7.9L, Glomerular Filtration Rate 41.4L CBC/BMP Laboratory Tests 12/30/16 06:04 Calcium Level 7.9 L, Red Blood Count 3.78 L, Mean Corpuscular Volume 92.6, Mean Corpuscular Hemoglobin 29.8, Mean Corpuscular Hemoglobin Concent 32.2, Red Cell Distribution Width 12.7 Microbiology Microbiology 12/27/16 Blood Culture - Preliminary, Resulted No Growth after 72 hours. All specime... 12/27/16 Blood Culture - Preliminary, Resulted No Growth after 72 hours. All specime... CHARMAINE LEGGETT Dec 30, 2016 18:11
[2016-12-30] MEDS: zolPIDEM TARTRATE 10MG TAB PO PRN (20:35)
[2016-12-30 22:00] VITALS: BP 126/60
--- NOTE | 2016-12-30 22:00 | IPN ---
DATE: 12/30/2016 Subjectively, the patient has had some diarrheal bowel movements last night, still having some abdominal distension and pressure but without significant nausea, notices that he is "burping a lot." He has been afebrile. And he has been on some oxygen supplementation but seems to be ambulating better with this oxygen supplementation and notices that his oxygen saturations are better than they were yesterday when he was ambulating. He has tolerated his clear liquid diets, and has no other complaints associated with this. He continues to be afebrile and laboratory brock, his white count has been within normal limits. His hematocrit is stable. His creatinine is slowly coming down over time to 1.79 today. His physical exam reveals lungs which are clear anteriorly. Abdomen is distended, tympanitic throughout. No guarding, no rebound. Has some mild right upper quadrant tenderness. No peritoneal signs are appreciated. IMPRESSION AND PLAN: 1. The patient had evidence of ileus. It is probably compounded by this gastroenteritis he had or possibly inflammatory intra-abdominal process and may be that his cholecystitis was severe enough that it also caused some generalized ileus and this seems to be resolving. I will start him on a carbohydrate-consistent diet. 2. Cholecystitis. From a cholecystitis standpoint, his white count has been normal, his temperature has been normal and overall seems to have had some improvement from a clinical progress. I anticipate, unfortunately, that it will be another 48-72 hours before we will be able to get him out of the hospital given his other comorbidities. 3. Respiratory: His respiratory status has improved, although still not up to par at this point and probably has some compressive atelectasis associated with his abdominal distension. He will need to continue on his nebulizers and progress his activity as tolerated. 4. Renal insufficiency seems to be improving and his urine output seems to be good at this time. The hospitalists are assisting with his care and appreciate their input, recommendations concerning his multiple medical issues.
[2016-12-31 02:00] VITALS: BP 113/56
[2016-12-31] MEDS: IPRATROPIUM 0.5MG/ALBUTEROL 2.5MG INH SOL UD 3ML (DUONEB)(J7620) NEB SCH ×4 (02:00→20:41)
[2016-12-31] MEDS: CIPROFLOXACIN 200 MG in APPROPRIATE DILUENT 1 EA IV SCH ×2 (02:01→14:14)
[2016-12-31] MEDS: metroNIDAZOLE 500 MG in APPROPRIATE DILUENT 1 EA IV SCH ×3 (03:21→18:00)
[2016-12-31 06:00] VITALS: BP 120/68
[2016-12-31 07:11] LABS: MEAN CORPUSCULAR HEMOGLOBIN 29.6 pg (27.0-33.0); MEAN CORPUSCULAR HGB CONC 31.5 g/dl (32.0-36.5); RED CELL DISTRIBUTION WIDTH 12.7 % (11.5-14.5); WHITE BLOOD COUNT 8.8 K/mm3 (4.0-10.0)
[2016-12-31 07:23] LABS: CALCIUM LEVEL 7.6 MG/DL (8.8-10.2); CREATININE FOR GFR 1.67 MG/DL (0.70-1.30); GLOMERULAR FILTRATION RATE 44.9 (>49)
[2016-12-31] MEDS: HumaLOG INSULIN (NovoLOG) PER UNIT SC SCH ×4 (08:06→20:31)
[2016-12-31] MEDS: PANTOPRAZOLE 40MG INJ (PROTONIX) (C9113) IV SCH (08:07)
[2016-12-31] MEDS: HEPARIN SOD (PORCINE) 5000 UNITS/ML VIAL SQ SCH ×2 (08:07→20:59)
[2016-12-31] MEDS: SIMETHICONE 80 MG CHEW TAB PO SCH ×4 (08:07→20:59)
[2016-12-31] MEDS: amLODIPine 10 MG TAB PO SCH (08:09)
[2016-12-31 10:00] VITALS: BP 130/79
[2016-12-31] MEDS: LEVEMIR (INSULIN DETEMIR) 1 UNITS/0.01ML SC SCH ×2 (11:57→21:00)
[2016-12-31] MEDS: LACTOBACILLUS ACIDOPHILUS CAP (BACID) PO SCH ×2 (11:58→17:56)
--- NOTE | 2016-12-31 11:58 | IPNPDOC ---
Date Seen The patient was seen on 12/31/16. Progress Note Subjective: Pateint feels better this am , tolerated bland diet, though still continues to have loose stools, abdominal pain and distension better, says breathing also better. Vitals: Vital Signs Label Value Date Time Patient Temperature 97.1 degrees F 12/31/16 1000 Temperature Source Tympanic 12/31/16 1000 Pulse 87 12/31/16 1000 Respiratory Rate 16 bpm 12/31/16 1000 Blood Pressure Assessment 130/79 (96) 12/31/16 1000 Bedside Pulse Oximetry 93 % 12/31/16 1000 Item Value Date Time Oxygen Delivery Method High Flow Cannula 12/31/16 1000 Oxygen Flow Rate 4.0 L/min 12/31/16 1000 General: Awake, alert, no acute distress HEENT: Normocephalic, atraumatic, extraocular movements intact CV: Regular rate and rhythm Lungs: Clear to auscultation bilaterally Abd: Soft, nontender Extremities: No edema Neuro: Alert And oriented 3 Psych: Normal mood and affect Assessment and Plan: 61-year-old male with psoriasis, GERD, diabetes mellitus type 2, hypertension, history of Lyme disease and associated arthritis, CK D stage III who was admitted by Dr. Rubi for a calculus cholecystitis. We have been consulted for medical management. 1. A calculus cholecystitis: Management as per Dr. Rubi. Currently on Cipro and Flagyl. 2. Diabetes mellitus type 2: Currently holding home trulicity .Patient eating better today so will start low dose of levemir and we will continue the sliding scale insulin 3. Hypertension: Continue home Norvasc. 4. Chronic kidney disease stage III: Baseline creatinine appears to be in the mid ones. He had an acute kidney injury upon admission, but his BUN and creatinine have steadily trended down and his creatinine is currently 1.69. which is almost at baseline. 5. Hypoxia: Patient does not use any oxygen chronically, but he continues to require approximately 4 L even at rest. A chest x-ray showed concern for a small right effusion patient was diuresed over the past 2 days. Volume status seems to be euvolemic. will continue with incentive spirometry. will try to wean oxygen today. DVT prophylaxis: Heparin Dispo: at the discretion of the primary team. VS, I&O, 24H, Fishbone Vital Signs/I&O Vital Signs Date Time Temp Pulse Resp B/P Pulse Ox O2 Delivery O2 Flow Rate FiO2 12/31/16 10:00 97.1 87 16 130/79 93 High Flow Cannula 4.0 I&O- Last 24 Hours up to 6 AM 12/31/16 06:00 Intake Total 2240 ml Output Total 1250 ml Balance 990 ml Laboratory Data 24H LABS Laboratory Tests 2 12/31/16 06:57: Anion Gap 8, Blood Urea Nitrogen 25H, Creatinine 1.67H, Sodium Level 136, Potassium Level 4.0, Chloride Level 95L, Carbon Dioxide Level 33H, Calcium Level 7.6L, Glomerular Filtration Rate 44.9L 12/31/16 11:29: Bedside Glucose (Misc Panel) 324H CBC/BMP Laboratory Tests 12/31/16 06:57 Calcium Level 7.6 L, Red Blood Count 3.75 L, Mean Corpuscular Volume 94.0, Mean Corpuscular Hemoglobin 29.6, Mean Corpuscular Hemoglobin Concent 31.5 L, Red Cell Distribution Width 12.7 Microbiology Microbiology 12/27/16 Blood Culture - Preliminary, Resulted No Growth after 72 hours. All specime... 12/27/16 Blood Culture - Preliminary, Resulted No Growth after 72 hours. All specime... ARNULFO VAUGHAN MD Dec 31, 2016 11:57
[2016-12-31 14:00] VITALS: BP 127/69
[2016-12-31] MEDS: zolPIDEM TARTRATE 10MG TAB PO PRN (20:59)
[2016-12-31 22:00] VITALS: BP 122/78
[2017-01-01] MEDS: CIPROFLOXACIN 200 MG in APPROPRIATE DILUENT 1 EA IV SCH (01:05)
[2017-01-01] MEDS: IPRATROPIUM 0.5MG/ALBUTEROL 2.5MG INH SOL UD 3ML (DUONEB)(J7620) NEB SCH ×4 (01:55→19:58)
[2017-01-01 02:00] VITALS: BP 127/73
[2017-01-01] MEDS: metroNIDAZOLE 500 MG in APPROPRIATE DILUENT 1 EA IV SCH ×2 (02:25→11:27)
[2017-01-01 06:00] VITALS: BP 135/81
[2017-01-01 07:04] LABS: MEAN CORPUSCULAR HEMOGLOBIN 30.1 pg (27.0-33.0); MEAN CORPUSCULAR HGB CONC 32.2 g/dl (32.0-36.5); MEAN CORPUSCULAR VOLUME 93.5 fl (80.0-96.0); RED CELL DISTRIBUTION WIDTH 12.6 % (11.5-14.5); WHITE BLOOD COUNT 9.4 K/mm3 (4.0-10.0)
[2017-01-01 07:19] LABS: CALCIUM LEVEL 7.7 MG/DL (8.8-10.2); CREATININE FOR GFR 1.47 MG/DL (0.70-1.30); POTASSIUM SERUM 3.9 MEQ/L (3.5-5.1)
[2017-01-01] MEDS: HumaLOG INSULIN (NovoLOG) PER UNIT SC SCH ×4 (09:05→20:47)
[2017-01-01] MEDS: LACTOBACILLUS ACIDOPHILUS CAP (BACID) PO SCH ×3 (09:05→17:12)
[2017-01-01] MEDS: PANTOPRAZOLE 40MG INJ (PROTONIX) (C9113) IV SCH (09:06)
[2017-01-01] MEDS: HEPARIN SOD (PORCINE) 5000 UNITS/ML VIAL SQ SCH ×2 (09:06→21:31)
[2017-01-01] MEDS: SIMETHICONE 80 MG CHEW TAB PO SCH ×4 (09:06→21:29)
[2017-01-01] MEDS: LEVEMIR (INSULIN DETEMIR) 1 UNITS/0.01ML SC SCH ×2 (09:07→21:31)
[2017-01-01] MEDS: amLODIPine 10 MG TAB PO SCH (09:09)
[2017-01-01] MEDS ORDERED: FUROSEMIDE 100 MG/10 ML VIAL (J1940) IV ONE (11:00)
--- NOTE | 2017-01-01 13:44 | REP ---
PORTABLE CHEST: AP portable view of the chest is performed and compared to prior study of 12/29/2016. There are bibasilar infiltrates unchanged. The heart is enlarged and the mediastinal silhouette is unchanged. IMPRESSION: Stable exam. Signed by Conor Liu MD 01/02/2017 04:37 P
[2017-01-01 14:00] VITALS: BP 133/68
--- NOTE | 2017-01-01 14:02 | IPNPDOC ---
Date Seen The patient was seen on 01/01/17. Progress Note Subjective: Again feels bloated today . still requiring oxygen however it is down to 2 liters. Cxr shows persistence of bibasilar atelectasis no change from before. nofever or chills, no diarrhea. No cough , no chest pain . no nausea or vomiting. Vital Signs: Vital Signs Label Value Date Time Patient Temperature 98.4 degrees F 01/01/17599 Temperature Source Tympanic 01/01/17599 Pulse 84 01/01/17599 Respiratory Rate 16 bpm 01/01/17599 Blood Pressure Assessment 135/81 (99) 01/01/17599 Bedside Pulse Oximetry 92 % 01/01/17599 Item Value Date Time Oxygen Delivery Method High Flow Cannula 01/01/17599 Oxygen Flow Rate 2.0 L/min 01/01/17599 Physical Exam:General: Awake, alert, no acute distress HEENT: Normocephalic, atraumatic, extraocular movements intact CV: Regular rate and rhythm Lungs: Clear to auscultation bilaterally, diminished at the bases. Abd: Soft, nontender Extremities: No edema Neuro: Alert And oriented 3 Psych: Normal mood and affect Sacrum no edema. Assessment and Plan: 61-year-old male with psoriasis, GERD, diabetes mellitus type 2, hypertension, history of Lyme disease and associated arthritis, CK D stage III who was admitted by Dr. Rubi for a calculus cholecystitis. We have been consulted for medical management. A calculus cholecystitis: Management as per Dr. Rubi. Currently on Cipro and Flagyl. Diabetes mellitus type 2: Currently holding home trulicity .Patient eating better today so will start low dose of levemir and we will continue the sliding scale insulin Hypertension: Continue home Norvasc. Chronic kidney disease stage III: Baseline creatinine appears to be in the mid ones. He had an acute kidney injury upon admission, but his BUN and creatinine have steadily trended down and his creatinine is currently 1.49. which isat baseline. Hypoxia: Patient does not use any oxygen chronically, but he continues to require approximately 2 L even at rest which is better than before. A chest x- ray showed concern for a small right effusion patient was diuresed before. will restart lasix today. will continue with incentive spirometry. will try to wean oxygen today. DVT prophylaxis: Heparin Dispo: at the discretion of the primary team. VS, I&O, 24H, Fishbone Vital Signs/I&O Vital Signs Date Time Temp Pulse Resp B/P Pulse Ox O2 Delivery O2 Flow Rate FiO2 01/01/17 09:09 88 125/73 01/01/17 08:11 92 Nasal Cannula 2.0 01/01/17 06:00 98.4 16 I&O- Last 24 Hours up to 6 AM 01/01/17 06:00 Intake Total 2540 ml Output Total 1025 ml Balance 1515 ml Laboratory Data 24H LABS Laboratory Tests 2 12/31/16 16:21: Bedside Glucose (Misc Panel) 293H 12/31/16 20:12: Bedside Glucose (Misc Panel) 222H 01/01/17 06:32: Anion Gap 6L, Blood Urea Nitrogen 19H, Creatinine 1.47H, Sodium Level 138, Potassium Level 3.9, Chloride Level 97L, Carbon Dioxide Level 35H, Calcium Level 7.7L, Glomerular Filtration Rate 52.0 01/01/17 11:17: Bedside Glucose (Misc Panel) 348H CBC/BMP Laboratory Tests 01/01/17 06:32 Calcium Level 7.7 L, Red Blood Count 3.59 L, Mean Corpuscular Volume 93.5, Mean Corpuscular Hemoglobin 30.1, Mean Corpuscular Hemoglobin Concent 32.2, Red Cell Distribution Width 12.6 Microbiology Microbiology 12/27/16 Blood Culture - Final, Complete NO GROWTH AFTER 5 DAYS 12/27/16 Blood Culture - Final, Complete NO GROWTH AFTER 5 DAYS 12/31/16 Clostridium difficile (PCR) - Final, Complete ARNULFO VAUGHAN MD Jan 01, 2017 14:02
[2017-01-01] MEDS: FUROSEMIDE 40 MG/4 ML VIAL (J1940) IV SCH (17:12)
[2017-01-01] MEDS: CIPROFLOXACIN 250 MG TAB PO SCH (18:31)
[2017-01-01] MEDS: metroNIDAZOLE (FLAGYL) 500 MG TAB PO SCH (21:30)
[2017-01-01] MEDS: zolPIDEM TARTRATE 10MG TAB PO PRN (21:31)
[2017-01-01 22:00] VITALS: BP 127/72
[2017-01-01] MEDS: NORCO, ANEXSIA 5/325MG TABLET (HYDROcodone/ACETAMINOPHEN) PO PRN (23:13)
[2017-01-02] MEDS: IPRATROPIUM 0.5MG/ALBUTEROL 2.5MG INH SOL UD 3ML (DUONEB)(J7620) NEB SCH ×2 (01:55→07:51)
[2017-01-02 02:00] VITALS: BP 141/77
[2017-01-02] MEDS: metroNIDAZOLE (FLAGYL) 500 MG TAB PO SCH (05:10)
[2017-01-02] MEDS: CIPROFLOXACIN 250 MG TAB PO SCH (05:10)
[2017-01-02 06:00] VITALS: BP 119/62
[2017-01-02 07:15] LABS: MEAN CORPUSCULAR HEMOGLOBIN 29.8 pg (27.0-33.0); MEAN CORPUSCULAR HGB CONC 32.4 g/dl (32.0-36.5); MEAN CORPUSCULAR VOLUME 91.9 fl (80.0-96.0); RED CELL DISTRIBUTION WIDTH 12.6 % (11.5-14.5); WHITE BLOOD COUNT 9.8 K/mm3 (4.0-10.0)
[2017-01-02 07:21] LABS: CALCIUM LEVEL 7.9 MG/DL (8.8-10.2); CREATININE FOR GFR 1.56 MG/DL (0.70-1.30); GLOMERULAR FILTRATION RATE 48.6 (>49); POTASSIUM SERUM 3.8 MEQ/L (3.5-5.1)
[2017-01-02] MEDS: HumaLOG INSULIN (NovoLOG) PER UNIT SC SCH ×2 (07:30→12:20)
[2017-01-02 08:22] VITALS: BP 122/71
[2017-01-02] MEDS: amLODIPine 10 MG TAB PO SCH (08:22)
[2017-01-02] MEDS: SIMETHICONE 80 MG CHEW TAB PO SCH ×2 (08:23→12:21)
[2017-01-02] MEDS: LACTOBACILLUS ACIDOPHILUS CAP (BACID) PO SCH ×2 (08:23→12:20)
[2017-01-02] MEDS: PANTOPRAZOLE 40MG INJ (PROTONIX) (C9113) IV SCH (08:23)
[2017-01-02] MEDS: FUROSEMIDE 40 MG/4 ML VIAL (J1940) IV SCH (08:24)
[2017-01-02] MEDS: HEPARIN SOD (PORCINE) 5000 UNITS/ML VIAL SQ SCH (08:25)
[2017-01-02] MEDS: LEVEMIR (INSULIN DETEMIR) 1 UNITS/0.01ML SC SCH (08:26)
[2017-01-02] MEDS: NORCO, ANEXSIA 5/325MG TABLET (HYDROcodone/ACETAMINOPHEN) PO PRN (08:39)
[2017-01-02] MEDS ORDERED: FUROSEMIDE 40 MG/4 ML VIAL (J1940) IV SCH (09:00)
[2017-01-02] MEDS ORDERED: NORCOTAB PO (11:40)
[2017-01-02] MEDS ORDERED: CIPR-250 PO (11:40)
[2017-01-02] MEDS ORDERED: FURO40TA2 PO (11:50)
--- NOTE | 2017-01-02 12:37 | IPNPDOC ---
Date Seen The patient was seen on 01/02/17. Progress Note Subjective: patient anxious and irritable this am wants to go home , oxygenation better, ranging around 89% to 92% at rest without any tachypnea or discomfort , improves on ambulation and deep breaths, abdominal distension better. no chest pain , has some dry cough , no nausea or vomiting or diarrhea. Vitals: Vital Signs Label Value Date Time Patient Temperature 97.3 degrees F 01/02/17 0600 Temperature Source Tympanic 01/02/17 0600 Pulse 80 01/02/17 0600 Respiratory Rate 21 bpm 01/02/17 0600 Blood Pressure Assessment 122/71 01/02/17 0822 Bedside Pulse Oximetry 90 % 01/02/17 1000 Item Value Date Time Oxygen Delivery Method Room Air 01/02/17 1000 Physical Exam:General: Awake, alert, no acute distress HEENT: Normocephalic, atraumatic, extraocular movements intact CV: Regular rate and rhythm Lungs: Clear to auscultation bilaterally, diminished at the bases. Abd: Soft, nontender Extremities: No edema Neuro: Alert And oriented 3 Psych: Normal mood and affect Sacrum no edema. Assessment and Plan: 61-year-old male with psoriasis, GERD, diabetes mellitus type 2, hypertension, history of Lyme disease and associated arthritis, CK D stage III who was admitted by Dr. Rubi for a calculus cholecystitis. We have been consulted for medical management. A calculus cholecystitis: Management as per Dr. Rubi. Currently on Cipro and Flagyl. Diabetes mellitus type 2: Currently holding home trulicity .Patient eating better today so will start low dose of levemir and we will continue the sliding scale insulin Hypertension: Continue home Norvasc. Chronic kidney disease stage III: Baseline creatinine appears to be in the mid ones. He had an acute kidney injury upon admission, but his BUN and creatinine have steadily trended down and his creatinine is currently 1.49. which isat baseline. Hypoxia: Better . Thought to be due to atelectases and abdominal distension now improved. However will need to be followed by by PMD in the outpatient as he does have a tendency to desaturate on lying down and sleeping . Patient is obese with mostly central obesity so may have underlying sleep apnea also. will continue with incentive spirometry. will continue lasix 40 mg daily on discharge. From medical stand point pateint may be discharged home. DVT prophylaxis: Heparin VS, I&O, 24H, Fishbone Vital Signs/I&O Vital Signs Date Time Temp Pulse Resp B/P Pulse Ox O2 Delivery O2 Flow Rate FiO2 01/02/17 10:00 20 90 Room Air 01/02/17 08:39 1.0 01/02/17 08:22 87 122/71 01/02/17 06:00 97.3 I&O- Last 24 Hours up to 6 AM 01/02/17 06:00 Intake Total 1780 ml Output Total 2350 ml Balance -570 ml Laboratory Data 24H LABS Laboratory Tests 2 01/01/17 16:21: Bedside Glucose (Misc Panel) 277H 01/01/17 20:45: Bedside Glucose (Misc Panel) 211H 01/02/17 06:46: Anion Gap 8, Blood Urea Nitrogen 25H, Creatinine 1.56H, Sodium Level 140, Potassium Level 3.8, Chloride Level 98, Carbon Dioxide Level 34H, Calcium Level 7.9L, Glomerular Filtration Rate 48.6L CBC/BMP Laboratory Tests 01/02/17 06:46 Calcium Level 7.9 L, Red Blood Count 3.65 L, Mean Corpuscular Volume 91.9, Mean Corpuscular Hemoglobin 29.8, Mean Corpuscular Hemoglobin Concent 32.4, Red Cell Distribution Width 12.6 Microbiology Microbiology 12/27/16 Blood Culture - Final, Complete NO GROWTH AFTER 5 DAYS 12/27/16 Blood Culture - Final, Complete NO GROWTH AFTER 5 DAYS 12/31/16 Clostridium difficile (PCR) - Final, Complete ARNULFO VAUGHAN MD Jan 02, 2017 12:37
[2017-01-03] MEDS ORDERED: FUROSEMIDE 40 MG TAB PO SCH (09:00)
== END 2017-01-02 13:27 | disposition home or self-care (01) ==
LOC: M ED 02:03 → M ED INP 09:30 → M MSPAV 10:48
PROVIDERS: ADMIT Surgery; ATTEND Surgery
DX: K81.0 Acute cholecystitis (principal); A69.23 Arthritis due to Lyme disease; N17.9 Acute kidney failure, unspecified; K56.7 Ileus, unspecified; E11.9 Type 2 diabetes mellitus without complications; N18.3 Chronic kidney disease, stage 3 (moderate); K21.9 Gastro-esophageal reflux disease without esophagitis; I12.9 Hypertensive chronic kidney disease with stage 1 through stage 4 chronic kidney disease, or unspecified chronic kidney disease; L40.9 Psoriasis, unspecified; G47.33 Obstructive sleep apnea (adult) (pediatric); J98.11 Atelectasis; R09.02 Hypoxemia; R19.7 Diarrhea, unspecified; Z83.3 Family history of diabetes mellitus; Z79.4 Long term (current) use of insulin; Z85.828 Personal history of other malignant neoplasm of skin; Z79.84 Long term (current) use of oral hypoglycemic drugs; Z79.899 Other long term (current) drug therapy

== ENCOUNTER → 2017-02-04 | Outpatient (REF) | payer BC ==
[~2017-02-04] MED LIST: ALBU83IN INH; AMLO5TAB2 PO; CIPR-250 PO; DRIS50002 PO; FURO40TA2 PO; INSUDET SC; INSUH10VL SC; LISI10TA2 PO; NORCOTAB PO; OMEP40CA2 PO; TRUL0.5I SC
== END ==
LOC: M LAB REF 09:45
PROVIDERS: ATTEND Surgery
DX: D48.5 Neoplasm of uncertain behavior of skin (principal)

== ENCOUNTER → 2017-03-20 | Outpatient (REF) | payer BC | LOC: M LAB REF 13:27 | PROVIDERS: ATTEND Internal Medicine Nephrology | DX: D64.9 Anemia, unspecified (principal) ==

== ENCOUNTER 2017-09-28 06:08 | Emergency (ER) | payer BC ==
[~2017-09-28] VITALS: Ht 165.1 cm; Wt 77.3 kg
[2017-09-28] MEDS ORDERED: NS 1,000 ML IV SCH (07:18)
[2017-09-28] MEDS ORDERED: ASPIRIN 81 MG CHEW TABLET PO ONE (07:30)
--- NOTE | 2017-09-28 08:23 | REP ---
Chest two views HISTORY: Cough Comparison: 01/01/2017 Increased density is present in the lower lobes consistent with bibasilar atelectasis or infiltrates. The cardiac silhouette is enlarged. The pulmonary vasculature is normal in appearance. There is an old compression fracture of an upper thoracic vertebral body. IMPRESSION: 1. Bibasilar atelectasis or infiltrates. 2. Cardiomegaly. Signed by Bal Davidson MD 09/28/2017 08:14 A
[2017-09-28 08:36] LABS: BASO % 0.2 % (0.0-1.0); EOS # 0.1 10^3/uL (0.0-0.50); IMMATURE GRANULOCYTE % 0.2 % (0-0); LYMPH # 1.5 10^3/uL (1.5-4.5); MEAN CORPUSCULAR HEMOGLOBIN 29.4 pg (27.0-33.0); MEAN CORPUSCULAR VOLUME 89.1 fl (80.0-96.0); MONO # 0.6 10^3/uL (0.0-0.8); MONO % 6.7 % (0.0-5.0); NEUTROPHILS # 6.6 10^3/uL (1.8-7.7); NEUTROPHILS % 74.9 % (36.0-66.0); PLATELET COUNT, AUTOMATED 224 10^3/uL (150-450); RED CELL DISTRIBUTION WIDTH 12.6 % (11.5-14.5); WHITE BLOOD COUNT 8.8 10^3/uL (4.0-10.0)
[2017-09-28 09:03] LABS: ALBUMIN 3.8 GM/DL (3.2-5.2); ALBUMIN/GLOBULIN RATIO 1.06 (1.00-1.93); ALKALINE PHOSPHATASE 106 U/L (45-117); ALT/SGPT 28 U/L (12-78); ANION GAP 7 MEQ/L (8-16); AST/SGOT 10 U/L (7-37); BILIRUBIN,DIRECT 0.1 MG/DL (0.0-0.2); BILIRUBIN,TOTAL 0.4 MG/DL (0.2-1.0); BLOOD UREA NITROGEN 29 MG/DL (7-18); CALCIUM LEVEL 8.8 MG/DL (8.8-10.2); CARBON DIOXIDE LEVEL 28 MEQ/L (21-32); CHLORIDE LEVEL 104 MEQ/L (98-107); CREATININE FOR GFR 1.63 MG/DL (0.70-1.30); GLUCOSE, FASTING 212 MG/DL (80-110); POTASSIUM SERUM 4.7 MEQ/L (3.5-5.1); SODIUM LEVEL 139 MEQ/L (136-145); TOTAL PROTEIN 7.4 GM/DL (6.4-8.2)
[2017-09-28] MEDS ORDERED: SODIUM CHLORIDE 0.9% 1000 ML IV ONE (09:15)
[2017-09-28 10:30] VITALS: BP 158/88
--- NOTE | 2017-09-28 11:48 | REP ---
BILATERAL LOWER EXTREMITY DUPLEX VEINS: HISTORY: Shortness of breath. RIGHT LOWER EXTREMITY: There are no filling defects in the deep venous system. The deep venous system is patent. IMPRESSION: There is no deep venous thrombosis. LEFT LOWER EXTREMITY: There are no filling defects in the deep venous system. The deep venous system is patent. IMPRESSION: There is no deep venous thrombosis. Signed by Bal Davidson MD 09/28/2017 01:16 P
[2017-09-28] MEDS ORDERED: DOXY100C37 PO (11:53)
--- NOTE | 2017-09-28 18:05 | ECGEPIP ---
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
== END 2017-09-28 12:21 | disposition home or self-care (01) ==
LOC: M ED 06:08
DX: J18.9 Pneumonia, unspecified organism (principal); E11.9 Type 2 diabetes mellitus without complications; A69.20 Lyme disease, unspecified; Z79.899 Other long term (current) drug therapy; Z79.4 Long term (current) use of insulin

== ENCOUNTER → 2018-02-06 | Outpatient (REF) | payer BC ==
[2018-02-06 20:35] LABS: MUCUS, URINE MOD AMOUNT (NEGATIVE); RBC, URINE 0-1 /hpf (0-3); SQUAMOUS EPITHELIAL CELL URINE MOD AMOUNT /hpf (SMALL AMT); TRANSITIONAL EPI CELLS, URINE SMALL AMOUNT /hpf
[2018-02-06 20:36] LABS: BACTERIA, URINE NONE SEEN; HYALINE CAST, URINE NONE SEEN /lpf (0-1); MICROSCOPIC EXAM PERFORMED
== END ==
LOC: M LAB REF 16:54
DX: N18.3 Chronic kidney disease, stage 3 (moderate) (principal)
CPT/HCPCS: 81015

== ENCOUNTER → 2018-05-16 | Outpatient (CLI) | payer BC ==
[2018-05-16 17:37] LABS: PSA SCREENING 2.14 NG/ML (< 4.0)
[2018-05-21 15:06] LABS: TESTOSTERONE %FREE+WEAKLY BOUN 38.4 % (9.0-46.0); TESTOSTERONE FREE+WEAKLY BOUND 55.3 ng/dL (40.0-250.0); TESTOSTERONE TOTAL 144 ng/dL (264-916)
== END ==
LOC: M ADAMS 08:55
DX: N28.9 Disorder of kidney and ureter, unspecified (principal); E78.2 Mixed hyperlipidemia; I10 Essential (primary) hypertension; E11.65 Type 2 diabetes mellitus with hyperglycemia
CPT/HCPCS: G0103

== ENCOUNTER → 2018-05-16 | Outpatient (REF) | payer BC ==
[2018-05-16 17:10] LABS: BASO % 0.5 % (0.0-1.0); EOS # 0.1 10^3/uL (0.0-0.50); EOS % 1.6 % (0.0-3.0); HEMATOCRIT 41.7 % (42.0-52.0); HEMOGLOBIN 13.5 g/dl (13.5-17.5); IMMATURE GRANULOCYTE % 0.3 % (0-3.0); LYMPH % 31.6 % (24.0-44.0); MEAN CORPUSCULAR HEMOGLOBIN 29.3 pg (27.0-33.0); MEAN CORPUSCULAR HGB CONC 32.4 g/dl (32.0-36.5); MEAN CORPUSCULAR VOLUME 90.5 fl (80.0-96.0); MONO # 0.4 10^3/uL (0.0-0.8); MONO % 6.3 % (0.0-5.0); NEUTROPHILS # 3.8 10^3/uL (1.8-7.7); NEUTROPHILS % 59.7 % (36.0-66.0); PLATELET COUNT, AUTOMATED 236 10^3/uL (150-450); RED BLOOD COUNT 4.61 10^6/uL (4.30-6.10); RED CELL DISTRIBUTION WIDTH 13.2 % (11.5-14.5); WHITE BLOOD COUNT 6.3 10^3/uL (4.0-10.0)
[2018-05-16 17:45] LABS: ALBUMIN/GLOBULIN RATIO 1.14 (1.00-1.93); ALKALINE PHOSPHATASE 95 U/L (45-117); ALT/SGPT 31 U/L (12-78); ANION GAP 7 MEQ/L (8-16); AST/SGOT 11 U/L (7-37); BILIRUBIN,TOTAL 0.3 MG/DL (0.2-1.0); BLOOD UREA NITROGEN 44 MG/DL (7-18); CALCIUM LEVEL 8.6 MG/DL (8.8-10.2); CARBON DIOXIDE LEVEL 25 MEQ/L (21-32); CHLORIDE LEVEL 110 MEQ/L (98-107); CHOLESTEROL LEVEL 129 MG/DL (<200); CHOLESTEROL RISK RATIO 3.146 (<5); CREATININE FOR GFR 1.76 MG/DL (0.70-1.30); GLUCOSE, FASTING 117 MG/DL (70-100); HDL CHOLESTEROL 41 MG/DL (>40); LDL CHOLESTEROL 63.2 MG/DL (<100); NON-HDL-C 88 MG/DL; SODIUM LEVEL 142 MEQ/L (136-145); THYROID STIMULATING HORMONE 0.843 uIU/ML (0.358-3.740); TOTAL PROTEIN 7.5 GM/DL (6.4-8.2); TRIGLYCERIDES LEVEL 124 MG/DL (<150)
== END ==
LOC: M LABDRWAD 09:42
DX: N28.9 Disorder of kidney and ureter, unspecified (principal); E78.2 Mixed hyperlipidemia; I10 Essential (primary) hypertension; E11.65 Type 2 diabetes mellitus with hyperglycemia
CPT/HCPCS: 84443

== ENCOUNTER 2018-06-21 17:32 | Emergency (ER) | payer BC ==
[2018-06-21 18:29] LABS: BASO % 0.2 % (0.0-1.0); EOS % 0.3 % (0.0-3.0); HEMATOCRIT 35.1 % (42.0-52.0); HEMOGLOBIN 11.6 g/dl (13.5-17.5); IMMATURE GRANULOCYTE % 0.4 % (0-3.0); LYMPH # 1.3 10^3/uL (1.5-4.5); LYMPH % 13.6 % (24.0-44.0); MEAN CORPUSCULAR HEMOGLOBIN 29.7 pg (27.0-33.0); MEAN CORPUSCULAR VOLUME 89.8 fl (80.0-96.0); MONO # 0.6 10^3/uL (0.0-0.8); MONO % 6.3 % (0.0-5.0); NEUTROPHILS # 7.8 10^3/uL (1.8-7.7); NEUTROPHILS % 79.2 % (36.0-66.0); PLATELET COUNT, AUTOMATED 225 10^3/uL (150-450); RED BLOOD COUNT 3.91 10^6/uL (4.30-6.10); RED CELL DISTRIBUTION WIDTH 12.8 % (11.5-14.5); WHITE BLOOD COUNT 9.9 10^3/uL (4.0-10.0)
[2018-06-21 18:37] LABS: ANION GAP 9 MEQ/L (8-16); BLOOD UREA NITROGEN 55 MG/DL (7-18); CALCIUM LEVEL 8.3 MG/DL (8.8-10.2); CARBON DIOXIDE LEVEL 26 MEQ/L (21-32); CHLORIDE LEVEL 106 MEQ/L (98-107); CK-MB VALUE MASS < 1.0 NG/ML (<3.6); CPK CREATINE PHOSPHOKINASE 58 U/L (39-308); CREATININE FOR GFR 2.36 MG/DL (0.70-1.30); GLOMERULAR FILTRATION RATE 29.9 (>49); GLUCOSE, FASTING 209 MG/DL (70-100); MB/CK RELATIVE INDEX 1.72 (< OR =4); SODIUM LEVEL 141 MEQ/L (136-145); TROPONIN I < 0.02 NG/ML (< 0.10)
[2018-06-21 18:47] LABS: POTASSIUM SERUM 5.2 MEQ/L (3.5-5.1)
[2018-06-21 18:48] LABS: ETHYL ALCOHOL (ETHANOL) < 0.003 % (0.000-0.010)
[2018-06-21] MEDS: NS 1,000 ML IV (18:57)
[2018-06-21] MEDS: ONDANSETRON 4MG/2ML VIAL (J2405) IV (19:00)
[2018-06-21] MEDS: NS 500 ML IV (19:30)
== END 2018-06-21 21:45 | disposition home or self-care (01) ==
LOC: M ED 17:32
DX: E86.9 Volume depletion, unspecified (principal); E11.9 Type 2 diabetes mellitus without complications; I12.9 Hypertensive chronic kidney disease with stage 1 through stage 4 chronic kidney disease, or unspecified chronic kidney disease; N18.3 Chronic kidney disease, stage 3 (moderate); Z87.19 Personal history of other diseases of the digestive system; Z86.19 Personal history of other infectious and parasitic diseases; Z79.899 Other long term (current) drug therapy
CPT/HCPCS: J2405

== ENCOUNTER 2019-09-20 08:07 | Emergency (ER) | payer BC, OTHER ==
[~2019-09-20] VITALS: Ht 165.1 cm; Wt 77.3 kg
[~2019-09-20 08:07] MED LIST changes: -AMLO5TAB2 PO; +AMLO5TAB6 PO; +CREO3600; +DOXY100C37 PO; -DRIS50002 PO; +DRIS50003 PO; +HYDR-3715 PO; +LISI10TA15 PO; -LISI10TA2 PO; -NORCOTAB PO; -OMEP40CA2 PO; +OMEP40CA97 PO; +RANI150T; +ROSU5TAB5
[2019-09-20] MEDS ORDERED: INSUH10VL (08:21)
[2019-09-20] MEDS ORDERED: HYDR-643 (08:30)
[2019-09-20] MEDS ORDERED: BUPR150T3 (08:30)
[2019-09-20 09:02] LABS: BASO % 0.5 % (0.0-1.0); EOS # 0.1 10^3/uL (0.0-0.5); EOS % 1.6 % (0.0-3.0); HEMATOCRIT 45.5 % (42.0-52.0); HEMOGLOBIN 14.7 g/dl (13.5-17.5); LYMPH # 1.4 10^3/uL (1.5-5.0); LYMPH % 25.4 % (24.0-44.0); MEAN CORPUSCULAR HEMOGLOBIN 29.7 pg (27.0-33.0); MEAN CORPUSCULAR HGB CONC 32.3 g/dl (32.0-36.5); MEAN CORPUSCULAR VOLUME 91.9 fl (80.0-96.0); MONO # 0.4 10^3/uL (0.0-0.8); MONO % 6.6 % (0.0-5.0); NEUTROPHILS # 3.6 10^3/uL (1.5-8.5); NEUTROPHILS % 65.7 % (36.0-66.0); PLATELET COUNT, AUTOMATED 237 10^3/uL (150-450); RED BLOOD COUNT 4.95 10^6/uL (4.30-6.10); WHITE BLOOD COUNT 5.5 10^3/uL (4.0-10.0)
[2019-09-20 09:29] LABS: ALBUMIN 4.1 GM/DL (3.2-5.2); ALT/SGPT 26 U/L (12-78); BILIRUBIN,DIRECT 0.1 MG/DL (0.0-0.2); BILIRUBIN,TOTAL 0.5 MG/DL (0.2-1.0); BLOOD UREA NITROGEN 33 MG/DL (7-18); CALCIUM LEVEL 9.5 MG/DL (8.8-10.2); CARBON DIOXIDE LEVEL 27 MEQ/L (21-32); CHLORIDE LEVEL 106 MEQ/L (98-107); CK-MB VALUE MASS < 1.0 NG/ML (<3.6); CPK CREATINE PHOSPHOKINASE 75 U/L (39-308); CREATININE FOR GFR 1.66 MG/DL (0.70-1.30); GLOMERULAR FILTRATION RATE 44.8 (>49); GLUCOSE, FASTING 149 MG/DL (70-100); MB/CK RELATIVE INDEX 1.33 (< OR =4); POTASSIUM SERUM 5.2 MEQ/L (3.5-5.1); SODIUM LEVEL 139 MEQ/L (136-145); TOTAL PROTEIN 7.7 GM/DL (6.4-8.2); TROPONIN I < 0.02 NG/ML (< 0.10)
[2019-09-20] MEDS ORDERED: MECLIZINE 25 MG TABLET PO ONE (09:45)
--- NOTE | 2019-09-20 10:02 | REP ---
Clinical: Dizziness. Comparison: None. Findings: Age-related atrophy and microvascular ischemic changes are appreciated. Prominent CSF space in the posterior fossa without associated mass effect may reflect old left cerebellar infarction and less likely chronic arachnoid cyst or epidermoid. The ventricles and sulci are symmetric. Liu-white differentiation is maintained. There is no evidence for acute intracranial hemorrhage, mass/mass effect, pathology or infarction. Calvarium is intact. Paranasal sinuses and mastoid air cells are clear. Impression: 1. Age related atrophy and microvascular ischemic changes. 2. Prominent CSF space in the posterior fossa as described above appears chronic and may represent sequelae of old cerebellar infarction or possible benign cystic lesion. No prior examination is available for comparison. 3. No acute intracranial hemorrhage, infarction, or mass/mass effect. Electronically Signed by Shun Houser MD 09/20/2019 09:54 A
[2019-09-20] MEDS ORDERED: MECL-68 PO (13:47)
[2019-09-20 15:00] VITALS: BP 137/78
--- NOTE | 2019-09-20 19:31 | ECGEPIP ---
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
== END 2019-09-20 17:05 | disposition left against medical advice (07) ==
LOC: M ED 08:07
DX: H81.4 Vertigo of central origin (principal); E11.9 Type 2 diabetes mellitus without complications; I10 Essential (primary) hypertension; K21.9 Gastro-esophageal reflux disease without esophagitis; Z53.21 Procedure and treatment not carried out due to patient leaving prior to being seen by health care provider; Z79.4 Long term (current) use of insulin; Z79.51 Long term (current) use of inhaled steroids; Z83.3 Family history of diabetes mellitus; Z86.19 Personal history of other infectious and parasitic diseases

== ENCOUNTER → 2021-05-22 | Outpatient (CLI) | payer MEDICARE ==
[~2021-05-22] MED LIST changes: +AMLO1TAB24 PO; -AMLO5TAB6 PO; +BUPR150T12; -DOXY100C37 PO; +DOXY1CAP62 PO; +HYDR-643; +INSUH10VL; +MECL1TAB31 PO; +OMEP40CA4 PO; -OMEP40CA97 PO
[2021-05-22 14:20] LABS: CREATININE FOR GFR 1.57 MG/DL (0.70-1.30); GLOMERULAR FILTRATION RATE 47.4 (>49); POTASSIUM SERUM 5.2 MEQ/L (3.5-5.1)
== END ==
LOC: M PLALAB 11:17
PROVIDERS: ATTEND Internal Medicine Endocrinology, Diabetes & Metabolism
DX: E11.65 Type 2 diabetes mellitus with hyperglycemia (principal)

== ENCOUNTER 2022-09-02 20:31 | Emergency (ER) | payer MEDICARE ==
[~2022-09-02] VITALS: Ht 165.1 cm; Wt 168.0 kg
[~2022-09-02 20:31] MED LIST changes: +ALBU2.5V10 INH; -ALBU83IN INH; +DOXY-443 PO; -DOXY1CAP62 PO; -LISI10TA15 PO; +LISI10TA24 PO
[2022-09-02] MEDS ORDERED: FAMO1TAB11 (20:43)
[2022-09-02] MEDS ORDERED: TRAZ-252 (20:43)
[2022-09-02] MEDS ORDERED: TOUJ300I2 (20:43)
[2022-09-02 20:55] VITALS: BP 139/71
[2022-09-02] MEDS ORDERED: NS 1,000 ML IV ONE ×2 (20:55→22:15)
[2022-09-02] MEDS ORDERED: KETOROLAC 30 MG/ML 1ML VIAL IV ONE (20:55)
[2022-09-02 21:43] LABS: BASO % 0.1 % (0.0-1.0); EOS % 0.4 % (0.0-3.0); HEMATOCRIT 37.6 % (42.0-52.0); HEMOGLOBIN 12.8 g/dl (13.5-17.5); LYMPH # 1.1 10^3/uL (1.5-5.0); LYMPH % 11.7 % (24.0-44.0); MEAN CORPUSCULAR HEMOGLOBIN 30.5 pg (27.0-33.0); MEAN CORPUSCULAR VOLUME 89.5 fl (80.0-96.0); MONO # 0.5 10^3/uL (0.0-0.8); MONO % 5.3 % (2.0-8.0); NEUTROPHILS # 7.5 10^3/uL (1.5-8.5); NEUTROPHILS % 82.1 % (36.0-66.0); PLATELET COUNT, AUTOMATED 196 10^3/uL (150-450); WHITE BLOOD COUNT 9.1 10^3/uL (4.0-10.0)
[2022-09-02] MEDS ORDERED: KETO10TAB PO (22:21)
[2022-09-02] MEDS ORDERED: FLOM0.4C39 PO (22:21)
[2022-09-02 22:30] LABS: CK-MB VALUE MASS 1.5 NG/ML (<3.6); MB/CK RELATIVE INDEX 1.38 (< OR =4)
[2022-09-02 22:40] LABS: ALBUMIN 3.6 GM/DL (3.2-5.2); ALT/SGPT 39 U/L (12-78); AMYLASE 53 U/L (25-115); BILIRUBIN,DIRECT < 0.1 MG/DL (0.0-0.2); BILIRUBIN,TOTAL 0.4 MG/DL (0.2-1.0); LIPASE 186 U/L (73-393); TOTAL PROTEIN 6.8 GM/DL (6.4-8.2)
== END 2022-09-02 23:47 | disposition home or self-care (01) ==
LOC: M ED 20:31 → EDBD 20:31 → M ED 23:47
DX: R11.2 Nausea with vomiting, unspecified (principal); N20.0 Calculus of kidney; E11.9 Type 2 diabetes mellitus without complications; E78.5 Hyperlipidemia, unspecified; Z90.49 Acquired absence of other specified parts of digestive tract; K44.9 Diaphragmatic hernia without obstruction or gangrene; Z79.4 Long term (current) use of insulin; Z79.51 Long term (current) use of inhaled steroids; Z79.899 Other long term (current) drug therapy
CPT/HCPCS: 74176; 80047; 80076; 81002; 82150; 82550; 82553; 83605; 83690; 84484; 85025; 87040; 93005; 93041; 96361; 96374; 99284; J1885

== ENCOUNTER → 2022-09-04 | Outpatient (REF) | payer MEDICARE, BC ==
[~2022-09-04] MED LIST changes: +FAMO1TAB11; +FLOM0.4C39 PO; +KETO10TAB PO; +TOUJ300I2; +TRAZ-252
== END ==
LOC: M SFHCDERM 15:55
PROVIDERS: ATTEND Nurse Practitioner Family
DX: D23.5 Other benign neoplasm of skin of trunk (principal)

== ENCOUNTER 2024-01-13 10:49 | Emergency (ER) | payer BC, MEDICARE ==
[~2024-01-13] VITALS: Ht 162.6 cm; Wt 77.4 kg
[~2024-01-13 10:49] MED LIST changes: -FAMO1TAB11; +FAMO1TAB11 PO; +MECL-209 PO; -MECL1TAB31 PO; -TOUJ300I2; +TOUJ300I2 SQ
[2024-01-13 12:00] LABS: BASO % 0.5 % (0.0-1.0); EOS % 0.6 % (0.0-3.0); HEMOGLOBIN 13.3 g/dl (13.5-17.5); LYMPH # 1.5 10^3/uL (1.5-5.0); LYMPH % 23.5 % (24.0-44.0); MEAN CORPUSCULAR HGB CONC 32.4 g/dl (32.0-36.5); MEAN CORPUSCULAR VOLUME 95.6 fl (80.0-96.0); MONO # 0.4 10^3/uL (0.0-0.8); NEUTROPHILS # 4.2 10^3/uL (1.5-8.5); NEUTROPHILS % 68.2 % (36.0-66.0); PLATELET COUNT, AUTOMATED 226 10^3/uL (150-450); RED BLOOD COUNT 4.29 10^6/uL (4.30-6.10); WHITE BLOOD COUNT 6.2 10^3/uL (4.0-10.0)
[2024-01-13 12:34] LABS: ALBUMIN 4.2 G/DL (3.2-5.2); BILIRUBIN,TOTAL 0.5 MG/DL (0.3-1.2); CALCIUM LEVEL 8.7 MG/DL (8.3-10.6); CREATININE FOR GFR 1.6 MG/DL (0.70-1.30); GLOMERULAR FILTRATION RATE 46.1 (>49); POTASSIUM SERUM 5.1 MMOL/L (3.5-5.1)
[2024-01-13] MEDS: NS 1,000 ML IV ONE (13:06)
[2024-01-13] MEDS ORDERED: PRES10CA2 PO (13:51)
[2024-01-13] MEDS ORDERED: MELA5TAB7 PO (13:51)
[2024-01-13] MEDS ORDERED: ROSU10TA6 PO (13:51)
[2024-01-13] MEDS ORDERED: TOUJ300I2 SQ (13:51)
[2024-01-13] MEDS ORDERED: FLON1SPR NARES (13:51)
[2024-01-13] MEDS ORDERED: DULA4.5P SQ (13:51)
[2024-01-13] MEDS ORDERED: TRAZ-257 PO (13:51)
[2024-01-13] MEDS ORDERED: HOME MED LIST COMPLETE! XX SCH (13:55)
[2024-01-13 13:57] LABS: APPEARANCE, URINE CLEAR (CLEAR); BACTERIA, URINE AUTO NEGATIVE (NEGATIVE); BILIRUBIN, URINE AUTO NEGATIVE (NEGATIVE); BLOOD, URINE BLOOD NEGATIVE (NEGATIVE); COLOR, URINE YELLOW (YELLOW); GLUCOSE, URINE (UA) AUTO NEGATIVE (NEGATIVE); KETONE, URINE AUTO NEGATIVE (NEGATIVE); LEUKOCYTE ESTERASE, URINE AUTO NEGATIVE (NEGATIVE); NITRITE, URINE AUTO NEGATIVE (NEGATIVE); PROTEIN, URINE AUTO NEGATIVE (NEGATIVE); RBC, URINE AUTO 0 /HPF (0-3); SPECIFIC GRAVITY URINE AUTO 1.016 (1.002-1.035); SQUAMOUS EPITHELIAL CELL UR AU 0 /HPF (0-6); UROBILINOGEN, URINE AUTO 0.2 mg/dL (0.0-2.0); WBC, URINE AUTO 0 /HPF (0-3)
[2024-01-13 14:05] LABS: MAGNESIUM LEVEL 2.7 MG/DL (1.8-2.4)
[2024-01-13 14:14] LABS: RSV AMPLIFICATION NEGATIVE (NEGATIVE)
[2024-01-13 15:03] VITALS: BP 134/67; TEMP 98; O2SAT 96
== END 2024-01-13 15:12 | disposition home or self-care (01) ==
LOC: M ED 10:49
DX: E86.0 Dehydration (principal); I12.9 Hypertensive chronic kidney disease with stage 1 through stage 4 chronic kidney disease, or unspecified chronic kidney disease; I45.10 Unspecified right bundle-branch block; K21.9 Gastro-esophageal reflux disease without esophagitis; E10.9 Type 1 diabetes mellitus without complications; E78.5 Hyperlipidemia, unspecified; Z79.899 Other long term (current) drug therapy; Z79.4 Long term (current) use of insulin

== ENCOUNTER → 2024-03-20 | Outpatient (REF) | payer MEDICARE ==
[~2024-03-20] MED LIST changes: +DOXY-323 PO; -DOXY-443 PO; +DULA4.5P SQ; +FLON1SPR NARES; +MELA5TAB7 PO; +PRES10CA2 PO; +ROSU10TA61 PO; +ROSU5TAB40; -ROSU5TAB5; +TRAZ-257 PO
== END ==
LOC: M LAB REF 17:53
PROVIDERS: ATTEND Physician Assistant
DX: L03.012 Cellulitis of left finger (principal)